=== PATIENT | female | born 1995 | race Caucasian/White ===

== ENCOUNTER 2019-02-05 09:33 | Outpatient (CLI) | payer OTHER, MEDICAID ==
[~2019-02-05] VITALS: Ht 167.6 cm; Wt 78.8 kg
[2019-02-05] MEDS ORDERED: MAPA500T2 PO (10:01)
[2019-02-05] MEDS ORDERED: ZANT150T40 PO (10:01)
[2019-02-05] MEDS ORDERED: PRENTAB9 PO (10:01)
[2019-02-05 10:03] VITALS: BP 113/62
[2019-02-05] MEDS ORDERED: FIORICET TAB PO ONE (10:30)
[2019-02-05] MEDS ORDERED: FIOR1CAP PO (12:15)
== END 2019-02-05 12:15 | disposition home or self-care (01) ==
LOC: M LDO 09:33
PROVIDERS: ATTEND Obstetrics & Gynecology
DX: O99.89 Other specified diseases and conditions complicating pregnancy, childbirth and the puerperium (principal); R51 Headache; Z3A.36 36 weeks gestation of pregnancy
CPT/HCPCS: 59025; G0378; G0463

== ENCOUNTER → 2019-02-11 | Outpatient (REF) | payer OTHER, MEDICAID ==
[~2019-02-11] MED LIST: FIOR1CAP PO; MAPA500T2 PO; PRENTAB9 PO; ZANT150T40 PO
== END ==
LOC: M SFHCWAGY 17:21
PROVIDERS: ATTEND Specialist
DX: Z36.85 Encounter for antenatal screening for Streptococcus B (principal)

== ENCOUNTER 2019-03-07 09:01 | Inpatient (IN) | payer OTHER, MEDICAID ==
[~2019-03-07] VITALS: Ht 167.6 cm; Wt 83.9 kg
[2019-03-07] VITALS (20 sets, daily range): BP systolic 115–148; BP diastolic 58–80
[2019-03-07] MEDS ORDERED: LACTATED RINGER'S 1000 ML IV STA (10:02)
[2019-03-07] MEDS ORDERED: PENICILLIN G POTASSIUM IV 5 MU in D5W MINI-BAG PLUS 100 ML IV STA (10:02)
[2019-03-07 10:27] LABS: HEMATOCRIT 36.2 % (36.0-47.0); HEMOGLOBIN 12.4 g/dl (12.0-15.5); MEAN CORPUSCULAR HGB CONC 34.3 g/dl (32.0-36.5); MEAN CORPUSCULAR VOLUME 93.5 fl (80.0-96.0); PLATELET COUNT, AUTOMATED 174 10^3/uL (150-450); RED BLOOD COUNT 3.87 10^6/uL (4.00-5.40)
[2019-03-07] MEDS: PENICILLIN G POTASSIUM IV 2.5 MU in IV 1 EA IV SCH ×2 (14:33→18:33)
[2019-03-07] MEDS ORDERED: FENTANYL 2MCG/ML ROPIVACAINE 0.2% IN 0.9% NACL 100ML IVBAG As Ordered ONE (14:42)
--- NOTE | 2019-03-07 14:45 | HPEPDOC ---
Obstetrical History & Physical General Date of Admission Mar 07, 2019 at 10:10 Primary Care Physician: JULIO AVILA CNM History of Present Illness Patient is a 24-year-old female who is a at 40.2 weeks gestation with an CHARO of 03/05/2019 based off of her LMP and consistent with her first trimester U S. She in initiated care in her first trimester with AWP. Her has been uncomplicated. She presents with complaints of contractions that started early in the morning. She reports active movement and reports some leaking of fluid. she denies vaginal bleeding. 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 HAPPED DURING INFANCY Medications Scheduled Acetaminophen (Mapap) 500 Mg Tablet, 1,000 MG PO Q6HP Butalb/Acetaminophen/Caffeine (Fioricet 50-300-40 mg Capsule) 1 Each Capsule, 1 CAP PO DAILY No.137/Iron/Folic Acd ( Vitamin Tablet) 1 Each Tablet, 1 TAB PO DAILY Ranitidine Hcl (Zantac) 150 Mg Tablet, 1 TAB PO BID Physical Examination Physical Examination GENERAL: Alert and oriented times three. BREAST: . ABDOMEN: Gravid and non-tender to touch. FETUS: Is vertex (VTX) by sterile vaginal examination (SVE), fetus is vertex (VTX) by Zackery. HEART RATE: Regular rate and rhythm. LUNGS: Clear to auscultation (CTA). EXTREMITIES: No edema. No clonus. Deep tendon reflexes (DTRs) + 2. Vital Signs/I&O Vital Signs Date Time Temp Pulse Resp B/P (MAP) Pulse Ox O2 Delivery O2 Flow Rate FiO2 03/07/19 14:05 97.5 95 18 123/60 (81) Laboratory Data 24H LABS Laboratory Tests 2 03/07/19 10:01: Nucleated Red Blood Cells % (auto) 0.0, Syphilis Serology NONREACTIVE 03/07/19 10:21: Serology Scanned Report Hepatitis B Testing CBC/BMP Laboratory Tests 03/07/19 10:01 Urine Culture: No Growth Pertinent Laboratoy Data Blood Type: A+ RBC Antibody Screen: Negative HIV: Negative Hepatitis B: Negative Hepatitis C: Negative Rapid Plasma Reagin: Nonreactive Rubella: Immune Chlamydia/Gonorrhea: Negative Group B Streptococcus: Positive Glucose Tolerance Test: 81 Vaginal Examination Dilation: 4 cm Effacement: 90% Station: -1 Cervical Consistency: Soft Cervical Position: Anterior Presentation: Cephalic presentation Position: Vertex (occiput) Assessment Heart Rate (FHR): 130 Variability: Moderate Accelerations: Positive Decelerations: None Tocometer Contractions: Yes Frequency: regular Strength: palpated as moderate Multi-drug resistant Organism: No history of MDRO Assessment/Plan Assessment IUP at 40.2 weeks gestation GBS positive active labor Category I FHR tracing Plan Admit to L&D. OOB ad ginette. Diet: regular. Group B Streptococcus positive. Start antibiotics per order. Labs and intravenous (IV) per unit protocol. Anesthesia consult per patient's request. Lactated Ringers (LR): Bolus 800 cc prior to epidural. Anticipate cervical change and . JULIO AVILA CNM Mar 07, 2019 14:45
[2019-03-07] MEDS ORDERED: EPIDURAL/PCA KEYS XX PRN (15:30)
[2019-03-07] MEDS ORDERED: EPIDURAL COMMENT XX SCH (15:30)
[2019-03-07] MEDS ORDERED: FENTANYL/ROPIVACAINE/NACL BAG 100 ML EPIDURAL SCH (15:30)
[2019-03-07] MEDS ORDERED: NALOXONE INJ 0.4 MG/1 ML VIAL (J2310) IV PRN (15:30)
[2019-03-07] MEDS ORDERED: ePHEDrine SULFATE 25 MG/5 ML(5MG/ML) SYRINGE IV PRN (15:30)
[2019-03-07] MEDS ORDERED: ONDANSETRON 4MG/2ML VIAL (J2405) IV PRN (15:30)
[2019-03-07] MEDS ORDERED: LACTATED RINGER'S 1000 ML IV PRN (15:30)
[2019-03-07] MEDS ORDERED: REFRIGERATOR IV KEYS XX PRN (15:30)
[2019-03-07] MEDS ORDERED: diphenhydrAMINE INJ 50MG/ML VIAL (J1200) IV PRN (15:30)
--- NOTE | 2019-03-07 17:18 | IPNPDOC ---
Obstetrical Progress Note Date of Service Mar 07, 2019 Subjective Patient reports feeling increased vaginal pressure at times. She is comfortable with her epidural. Objective Vital Signs Date Time Temp Pulse Resp B/P (MAP) Pulse Ox O2 Delivery O2 Flow Rate FiO2 03/07/19 14:05 97.5 95 18 123/60 (81) Assessment Heart Rate (FHR): 125 Variability: Minimal to moderate Accelerations: Positive Decelerations: Early Heart Rate Tracing: Category I Tocometer Contractions: Yes Frequency: regular, every 1-3 min. Sterile Vaginal Examination Dilation: 5 cm Effacement (%): 100% Station: 0 Postion/Presentation: Cephalic presentation Assessment and Plan Age: 24 : 1 Term: 0 Pre-term: 0 Abortions: 0 Livin EGA at Admission: 40.2 Status: Reassuring Group B Streptococcus: Positive Anticipate: Vaginal Delivery Additional Comments AROM to a moderate amount of clear fluid. JULIO AVILA CNM Mar 07, 2019 17:18
--- NOTE | 2019-03-07 20:09 | IPNPDOC ---
Obstetrical Progress Note Date of Service Mar 07, 2019 Subjective Patient reports she is uncomfortable. Anesthesia contacted for a top off. Objective Vital Signs Date Time Temp Pulse Resp B/P (MAP) Pulse Ox O2 Delivery O2 Flow Rate FiO2 03/07/19 18:49 80 18 129/72 (91) 03/07/19 16:19 97.6 Assessment Heart Rate (FHR): 125 Variability: Minimal to moderate Accelerations: Positive Decelerations: Early Heart Rate Tracing: Category I Tocometer Contractions: Yes Frequency: regular, other (1 to 2 minutes) Sterile Vaginal Examination Dilation: 8 cm Effacement (%): 100% Station: 0 Postion/Presentation: Cephalic presentation Assessment and Plan EGA at Admission: 40.2 Status: Reassuring Group B Streptococcus: Positive Anticipate: Vaginal Delivery Additional Comments Preeclamptic profile ordered due to multiple elevated BPs. Elevated BPs seem to correlate with pain. Last BP's: 141/78, 142/67, 146/68. JULIO AVILA CNM Mar 07, 2019 20:09
[2019-03-07 20:32] LABS: ALT/SGPT 14 U/L (12-78); BILIRUBIN,TOTAL 0.2 MG/DL (0.2-1.0); GLOMERULAR FILTRATION RATE > 60.0 (>60); LDH LACTATE DEHYDROGENASE 146 U/L (84-246)
[2019-03-07] MEDS ORDERED: OXYTOCIN 30 UNITS IN 0.9% NaCl 500ML IV BAG (J2590) As Ordered ONE ×2 (20:55→23:21)
[2019-03-07] MEDS ORDERED: OXYTOCIN DRIP 30 UNITS in IV 1 EA IV SCH ×4 (23:21)
[2019-03-07] MEDS ORDERED: IBUPROFEN 800 MG TAB As Ordered ONE (23:27)
[2019-03-07] MEDS ORDERED: ACETAMINOPHEN TAB 650MG DOSE (2X325MG) PO PRN (23:30)
[2019-03-07] MEDS: IBUPROFEN 800 MG TAB PO PRN (23:30)
[2019-03-07] MEDS ORDERED: RHOGAM 300 MCG (1500 IU) INJ (J2790) IM SCH (23:30)
[2019-03-07] MEDS ORDERED: DIBUCAINE 1% OINTMENT 30GM TOP PRN (23:30)
[2019-03-07] MEDS ORDERED: DOCUSATE SODIUM 100 MG CAP PO PRN (23:30)
[2019-03-07] MEDS ORDERED: MEASLES,MUMPS,RUBELLA VACCINE INJ (MMR-II) (90707) SC SCH (23:30)
[2019-03-07] MEDS ORDERED: ANUSOL HC CREAM 30GM TOP PRN (23:30)
[2019-03-07] MEDS ORDERED: IBUPROFEN 600 MG TAB PO PRN (23:30)
--- NOTE | 2019-03-07 23:34 | DNPDOC ---
[facility] Delivery Note Delivery Note DATE OF DELIVERY: 03/07/2019 at 2233 PREDELIVERY DIAGNOSIS: 40-2/7 weeks' gestation and labor. POST DELIVERY DIAGNOSIS: Delivered. PROCEDURE: Spontaneous vaginal delivery PROVIDER: Julio Neves CNM, WHNP ANESTHESIA: epidural. ESTIMATED BLOOD LOSS: 450 mL. FINDINGS: 8 pounds 7 ounces; 3820 grams; female , Score 9/9, GHTN diagnosed during labor. DELIVERY SUMMARY: Patient is a 24-year-old female who is now a who pr esented to L&D in active labor. She received an epidural for pain management. The patient progressed to fully dilated at 2123 and pushed to a living female in the OA position with restitution to ROT at 2233. The anterior shoulder delivered with ease and the corpus immediately followed. The baby was placed on the maternal abdomen, [id number] active and crying. The cord was clamped times 2 after pulsation ceased and cut by the FOB. A 3-vessel cord was noted. The placenta delivered spontaneously and intact at 2242. Uterine hemostasis was achieved via rapid infusion of IV Pitocin at 999 cc/hr for 30 units in 500 cc of NS and fundal massage. The vagina, cervix, and perineum was inspected and found to have a small 2nd degree perineal laceration that was repaired with a 3.[address]-1. She also had a left labia abrasion that was not repaired due to good hemostasis. Patient was straight cathed and drained 300 cc of urine from bladder. Mom plans to breast feed and attempted in the room. Both mom and baby are in stable condition. All counts of instruments and sponges are correct. They are naming their baby Denisse. JULIO NEVES CNM Mar 07, 2019 23:34
[2019-03-07] MEDS: ACETAMINOPHEN 500 MG TAB PO PRN (23:42)
[2019-03-08 02:10] VITALS: BP 119/66
[2019-03-08 06:13] VITALS: BP 127/64
--- NOTE | 2019-03-08 07:17 | IPNPDOC ---
Progress Note Date of Service: Mar 08, 2019 Day#: 1 Progress Note SUBJECT: She has been ambulating, voiding spontaneously without issue and tolerating regular diet. Breast feeding without issue. Reports difficulty taking a deep breath and slight chest pain only when she stands up but reports she does not have this when she is sitting or laying down. OBJECTIVE: VITAL SIGNS: Within normal limits, afebrile. Alert and oriented times three. Breath sounds clear to auscultation. Heart rate: Regular rate and rhythm, no murmurs, rubs or gallops. Abdomen: Fundus firm at U/-1. Soft, tender to touch but only palpation. Minimal lochia. ASSESSMENT: Day 1 PLAN: 1. Continue supportive nursing care and breast feeding support. 2. Anticipate discharge tomorrow. VS, I&O, 24H, [facility] Vital Signs/I&O Vital Signs Date Time Temp Pulse Resp B/P (MAP) Pulse Ox O2 Delivery O2 Flow Rate FiO2 03/08/19 06:13 97.4 106 18 127/64 (85) 03/08/19 02:10 96 I&O- Last 24 Hours up to 6 AM 03/08/19 06:00 Intake Total 253 ml Output Total 1800 ml Balance -1547 ml Laboratory Data 24H LABS Laboratory Tests 2 03/07/19 10:01: Nucleated Red Blood Cells % (auto) 0.0, Glomerular Filtration Rate > 60.0, Uric Acid 6.0, Total Bilirubin 0.2, Aspartate Amino Transf (AST/SGOT) 12, Alanine Aminotransferase (ALT/SGPT) 14, Lactate Dehydrogenase 146, Syphilis Serology NONREACTIVE 03/07/19 10:21: Serology Scanned Report Hepatitis B Testing CBC/BMP Laboratory Tests 03/07/19 10:01 JULIO AVILA CNM Mar 08, 2019 07:16
[2019-03-08] MEDS: PRENATAL VITAMINS CHEWABLE TABLET PO SCH (09:03)
[2019-03-08] MEDS ORDERED: SLF 3 ML SYR IV PRN (10:30)
[2019-03-08] MEDS: IBUPROFEN 800 MG TAB PO PRN (11:13)
[2019-03-08] MEDS: SLF 3 ML SYR IV SCH ×2 (13:34→22:00)
[2019-03-08 17:59] VITALS: BP 110/57
[2019-03-08] MEDS: ACETAMINOPHEN 500 MG TAB PO PRN (18:08)
[2019-03-09] MEDS: SLF 3 ML SYR IV SCH (06:00)
[2019-03-09 06:18] VITALS: BP 116/68
[2019-03-09] MEDS ORDERED: ACET-683 PO (08:13)
[2019-03-09] MEDS ORDERED: IBUP80TA PO (08:13)
[2019-03-09] MEDS: PRENATAL VITAMINS CHEWABLE TABLET PO SCH (08:42)
[2019-03-09] MEDS ORDERED: ANUSOL HC CREAM 30GM TOP SCH (09:00)
[2019-03-09] MEDS: IBUPROFEN 800 MG TAB PO PRN (13:29)
== END 2019-03-09 14:40 | disposition home or self-care (01) | DRG 560 ==
LOC: M LDO 09:01 → M LDI 10:10 → M OBS 03-08 01:54
PROVIDERS: ADMIT Advanced Practice Midwife; ATTEND Advanced Practice Midwife
PROC: 10E0XZZ Delivery of Products of Conception, External Approach (ICD-10-PCS; principal; 2019-03-07)
PROC: 10907ZC Drainage of Amniotic Fluid, Therapeutic from Products of Conception, Via Natural or Artificial Opening (ICD-10-PCS; 2019-03-07)
PROC: 0KQM0ZZ Repair Perineum Muscle, Open Approach (ICD-10-PCS; 2019-03-07)
DX: O48.0 Post-term pregnancy (principal); Z3A.40 40 weeks gestation of pregnancy; Z37.0 Single live birth; O99.824 Streptococcus B carrier state complicating childbirth; O13.4 Gestational [pregnancy-induced] hypertension without significant proteinuria, complicating childbirth; O70.1 Second degree perineal laceration during delivery

== ENCOUNTER → 2019-04-22 | Outpatient (CLI) | payer OTHER, MEDICAID ==
[~2019-04-22] MED LIST changes: +ACET-683 PO; +IBUP80TA PO
[2019-04-22 12:04] LABS: BASO % 0.2 % (0.0-1.0); EOS # 0.1 10^3/uL (0.0-0.5); EOS % 0.8 % (0.0-3.0); HEMATOCRIT 44.9 % (36.0-47.0); HEMOGLOBIN 14.9 g/dl (12.0-15.5); LYMPH # 1.5 10^3/uL (1.5-5.0); MEAN CORPUSCULAR HEMOGLOBIN 30.9 pg (27.0-33.0); MEAN CORPUSCULAR HGB CONC 33.2 g/dl (32.0-36.5); MEAN CORPUSCULAR VOLUME 93.2 fl (80.0-96.0); MONO # 0.4 10^3/uL (0.0-0.8); MONO % 4.4 % (0.0-5.0); NEUTROPHILS # 7.1 10^3/uL (1.5-8.5); NEUTROPHILS % 78.3 % (36.0-66.0); PLATELET COUNT, AUTOMATED 249 10^3/uL (150-450); RED BLOOD COUNT 4.82 10^6/uL (4.00-5.40)
[2019-04-22 12:14] LABS: ALBUMIN 4.5 GM/DL (3.2-5.2); ALT/SGPT 21 U/L (12-78); BILIRUBIN,TOTAL 1.1 MG/DL (0.2-1.0); BLOOD UREA NITROGEN 15 MG/DL (7-18); C REACTIVE PROTEIN QUANTITATIV < 0.30 MG/DL (0.00-0.30); CALCIUM LEVEL 9.8 MG/DL (8.5-10.1); CARBON DIOXIDE LEVEL 28 MEQ/L (21-32); CHLORIDE LEVEL 104 MEQ/L (98-107); CREATININE FOR GFR 0.85 MG/DL (0.55-1.30); FOLATE > 24.0 NG/ML; FREE T4 1.28 NG/DL (0.76-1.46); GLOMERULAR FILTRATION RATE > 60.0 (>60); GLUCOSE, FASTING 104 MG/DL (70-100); POTASSIUM SERUM 4.1 MEQ/L (3.5-5.1); SODIUM LEVEL 138 MEQ/L (136-145); THYROID STIMULATING HORMONE 0.402 uIU/ML (0.358-3.740); TOTAL PROTEIN 7.7 GM/DL (6.4-8.2); VITAMIN B12 LEVEL 871 PG/ML
[2019-04-22 12:36] LABS: ERYTHROCYTE SEDIMENTATION RATE 5 mm/hr (0-20)
== END ==
LOC: M PLALAB 09:39
PROVIDERS: ATTEND Physician Assistant
DX: F45.8 Other somatoform disorders (principal); F41.1 Generalized anxiety disorder

== ENCOUNTER → 2019-07-06 | Outpatient (REF) | payer OTHER, MEDICAID | LOC: M SFHCWAGY 10:45 | PROVIDERS: ATTEND Advanced Practice Midwife | DX: Z01.419 Encounter for gynecological examination (general) (routine) without abnormal findings (principal); Z12.4 Encounter for screening for malignant neoplasm of cervix; R87.612 Low grade squamous intraepithelial lesion on cytologic smear of cervix (LGSIL) ==

== ENCOUNTER 2020-04-04 12:58 | Inpatient (IN) | payer MEDICAID, OTHER ==
[~2020-04-04] VITALS: Ht 167.6 cm; Wt 61.0 kg
--- OUTSIDE RECORDS SUMMARY | 2020-04-04 13:05 | CCD | Continuity of Care Document ---
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 AUTM Delta Spain MD AUTM [phone] Leon Voss M.D. AUTM [phone] Problems Active Problems Provider Date Generalized anxiety disorder PHIL Argueta Onset: 11/2018 Hand joint pain PHIL Argueta Onset: 02/25/2018 Acne PHIL Argueta Onset: 02/25/2018 Joint pain PHIL Argueta Onset: 02/25/2018 Social History Type Date Description Comments Sex Unknown ETOH Use Consumes 1 glass of wine per wee k Tobacco Use Start: Unknown Patient has never smoked Recreational Drug Use Denies Drug Use Smoking Status Reviewed: 08/12/19 Patient has never smoked Exercise Type/Frequency Walks sporadically Exercise Type/Frequency Yoga Sun Exposure Uses sunscreen Seat Belt/Car Seat Always uses seat belt Allergies, Adverse Reactions, Alerts Active Allergies Reaction Severity Comments Date Sulfa Flushing, Itching 02/15/2018 Medications Active Medications SIG Qnty Indications Ordering Provide r Date Clonazepam 0.5mg Tablets one-two tablet by mouth daily as needed for anxiety istop 197050930 30tabs F45.8 Arianna Tyler D.O. 04/22/2019 Sertraline HCL 50mg Tablets 1 by mouth every day Unknown Nexplanon 68mg Implant Unknown Immunizations CPT Code Status Date Vaccine Lot # [id number] Given 12/09/2019 Influenza Virus Vaccine, Quadrivalent, Split, Preservative Free [id number] Vital Signs Date Vital Result Comment 03/12/2020 2:50pm BP Systolic 112 mmHg BP Diastolic 68 mmHg Height 65.2 inches 5'5.20" Weight 143.38 lb BMI (Body Mass Index) 23.7 kg/m2 Heart Rate 75 /min Respiratory Rate 18 /min Body Temperature 98.6 F O2 % BldC Oximetry 98 % [place] Body Weight 125 lb 12/09/2019 1:21pm BP Systolic 114 mmHg BP Diastolic 64 mmHg Height 65.2 inches 5'5.20" Weight 142.50 lb BMI (Body Mass Index) 23.6 kg/m2 Heart Rate 87 /min Respiratory Rate 18 /min Body Temperature 98.4 F O2 % BldC Oximetry 98 % [place] Body Weight 125 lb Results Description No Information Available Procedures Description No Information Available Medical Devices Description No Information Available Encounters Type Date Location Provider Dx Diagnosis Office Visit 03/12/2020 3:00p [facility] PHIL Argueta F41.1 Generalized anxiety disorder H69.93 Unspecified Eustachian tube disorder, bilateral Office Visit 12/09/2019 1:20p [facility] PHIL Argueta H69.93 Unspecified Eustachian tube disorder, bilateral Z23 Encounter for immunization Assessments Date Code Description Provider 03/12/2020 F41.1 Generalized anxiety disorder PHIL Weathers 03/12/2020 H69.93 Unspecified Eustachian tube diso rder, bilateral PHIL Argueta 12/09/2019 H69.93 Unspecified Eustachian tube diso rder, bilateral PHIL Argueta 12/09/2019 Z23 Encounter for immunization PHIL Graham Plan of Treatment Future Appointment(s):* 07/10/2020 2:00 pm - PHIL Argueta at [facility] 03/12/2020 - PHIL Argueta* F41.1 Generalized anxiety disorder* Comments: * Stable with your current medication regimen, and we will refill that today. Call for any concerns. * Follow up:* 4 months with me. * H69.93 Unspecified Eustachian tube disorder, bilateral* Comments:* Stable. Continue with the recommendations of ENT. Functional Status Description No Information Available Mental Status Description No Information Available Referrals Refer to Reason for Referral Status Appt Date Leon Voss M.D. 24 year old female with pers istent eustachian tube dysfunction in spite of conservative measures. Please eval and treat. Closed 01/03/2020 [facility] [address] [place] [address], [address] [place] [address] [phone]
--- OUTSIDE RECORDS SUMMARY | 2020-04-04 13:06 | CCD ---
Author Author [facility] Organization [facility] Address Unknown Phone Unavailable Care Team Providers Care Reconciliation Coordinator Name Role Phone COURTNEY MILLER MD Unavailable Unavailable COURTNEY MILLER MD Unavailable Unavailable COURTNEY MILLER MD Unavailable Unavailable COURTNEY MILLER MD Unavailable Unavailable COURTNEY MILLER MD Unavailable Unavailable COURTNEY MILLER MD Unavailable Unavailable COURTNEY MILLER MD Unavailable Unavailable COURTNEY MILLER MD Unavailable Unavailable COURTNEY MILLER MD Unavailable Unavailable COURTNEY MILLER MD Unavailable Unavailable COURTNEY MILLER MD Unavailable Unavailable COURTNEY MILLER MD Unavailable Unavailable COURTNEY MILLER MD Unavailable Unavailable COURTNEY MILLER MD Unavailable Unavailable COURTNEY MILLER MD Unavailable Unavailable COURTNEY MILLER MD Unavailable Unavailable CHROSTOWSKI, COURTNEY MD Unavailable Unavailable CHROSTOWSKI, COURTNEY MD Unavailable Unavailable CHROSTOWSKI, COURTNEY MD Unavailable Unavailable CHROSTOWSKI, COURTNEY MD Unavailable Unavailable CHROSTOWSKI, COURTNEY MD Unavailable Unavailable CHROSTOWSKI, COURTNEY MD Unavailable Unavailable CHROSTOWSKI, COURTNEY MD Unavailable Unavailable CHROSTOWSKI, COURTNEY MD Unavailable Unavailable CHROSTOWSKI, COURTNEY MD Unavailable Unavailable CHROSTOWSKI, COURTNEY MD Unavailable Unavailable CHROSTOWSKI, COURTNEY MD Unavailable Unavailable CHROSTOWSKI, COURTNEY MD Unavailable Unavailable CHROSTOWSKI, COURTNEY MD Unavailable Unavailable CHROSTOWSKI, COURTNEY MD Unavailable Unavailable CHROSTOWSKI, COURTNEY MD Unavailable Unavailable CHROSTOWSKI, COURTNEY MD Unavailable Unavailable CHROSTOWSKI, COURTNEY MD Unavailable Unavailable CHROSTOWSKI, COURTNEY MD Unavailable Unavailable CHROSTOWSKI, COURTNEY MD Unavailable Unavailable CHROSTOWSKI, COURTNEY MD Unavailable Unavailable CHROSTOWSKI, COURTNEY MD Unavailable Unavailable CHROSTOWSKI, COURTNEY MD Unavailable Unavailable CHROSTOWSKI, COURTNEY MD Unavailable Unavailable CHROSTOWSKI, COURTNEY MD Unavailable Unavailable Ai, Dong PA Unavailable Unavailable Ai, Dong PA Unavailable Unavailable Ai, Dong PA Unavailable Unavailable Ai, Dong PA Unavailable Unavailable Ai, Dong PA Unavailable Unavailable Ai, Dong PA Unavailable Unavailable Ai, Dong PA Unavailable Unavailable Ai, Dong PA Unavailable Unavailable Ai, Dong PA Unavailable Unavailable Ai, Dnog PA Unavailable Unavailable Ai, Dong PA Unavailable Unavailable Ai, Dong PA Unavailable Unavailable Ai, Dong PA Unavailable Unavailable Ai, Dong PA Unavailable Unavailable Ai, Dong PA Unavailable Unavailable Ai, Dong PA Unavailable Unavailable Ai, Dong PA Unavailable Unavailable Ai, Dong PA Unavailable Unavailable Ai, Dong PA Unavailable Unavailable Ai, Dong PA Unavailable Unavailable Ai, Dong PA Unavailable Unavailable Ai, Dong PA Unavailable Unavailable Ai, Dong PA Unavailable Unavailable Ai, Dong PA Unavailable Unavailable Ai, Dong PA Unavailable Unavailable Ai, Dong PA Unavailable Unavailable Ai, Dong PA Unavailable Unavailable Ai, Dong PA Unavailable Unavailable Ai, Dong PA Unavailable Unavailable Ai, Dong PA Unavailable Unavailable Ai, Dong PA Unavailable Unavailable Ai, Dong PA Unavailable Unavailable Ai, Dong PA Unavailable Unavailable Ai, Dong PA Unavailable Unavailable Ai, Dong PA Unavailable Unavailable Ai, Dong PA Unavailable Unavailable Ai, Dong PA Unavailable Unavailable Ai, Dong PA Unavailable Unavailable Ai, Dong PA Unavailable Unavailable Ai, Dong PA Unavailable Unavailable Ai, Dong PA Unavailable Unavailable Ai, Dong PA Unavailable Unavailable Ai, Dong PA Unavailable Unavailable Ai, Dong PA Unavailable Unavailable Ai, Dong PA Unavailable Unavailable Ai, Dong PA Unavailable Unavailable Ai, Dong PA Unavailable Unavailable Ai, Dong PA Unavailable Unavailable Ai, Dong PA Unavailable Unavailable Rossi, Sameera [facility] COURT OF APPEALS LAW CLERK Unavailable Unavailable Rossi, Sameera FEDERAL COURT OF APPEALS LAW CLERK Unavailable Unavailable Rossi, Sameera FED[facility] COURT OF APPEALS LAW CLERK Unavailable Unavailable Rossi, Sameera FEDERAL COURT OF [place] LAW CLERK Unavailable Unavailable Rossi, Sameera FEDERAL COURT OF APPEALS LAW CLERK Unavailable Unavailable Rossi, Sameera FEDERAL COURT OF APPEALS LAW CLERK Unavailable Unavailable Rossi, Sameera FEDERAL COURT OF APPEALS LAW CLERK Unavailable Unavailable Rossi, Sameera FEDERAL COURT OF APPEALS LAW CLERK Unavailable Unavailable Rossi, Sameera FEDERAL COURT OF [place] LAW CLERK Unavailable Unavailable Rossi, Sameera FEDERAL COURT OF APPEALS LAW CLERK Unavailable Unavailable Rossi, Sameera FEDERAL COURT OF APPEALS LAW CLERK Unavailable Unavailable Ai, Dong PA Unavailable Unavailable Ai, Dong PA Unavailable Unavailable Ai, Dong PA Unavailable Unavailable Ai, Dong PA Unavailable Unavailable Ai, Dong PA Unavailable Unavailable Ai, Dong PA Unavailable Unavailable Ai, Dong PA Unavailable Unavailable Ai, Dong PA Unavailable Unavailable Ai, Dong PA Unavailable Unavailable Ai, Dong PA Unavailable Unavailable Ai, Dong PA Unavailable Unavailable Ai, Dong PA Unavailable Unavailable Ai, Dong PA Unavailable Unavailable Ai, Dong PA Unavailable Unavailable Ai, Dong PA Unavailable Unavailable Ai, Dong PA Unavailable Unavailable Ai, Dong PA Unavailable Unavailable Ai, Dong PA Unavailable Unavailable Ai, Dong PA Unavailable Unavailable Ai, Dong PA Unavailable Unavailable Ai, Dong PA Unavailable Unavailable Ai, Dong PA Unavailable Unavailable Ai, Dong PA Unavailable Unavailable Ai, Dong PA Unavailable Unavailable Ai, Dong PA Unavailable Unavailable Ai, Dong PA Unavailable Unavailable Ai, Dong PA Unavailable Unavailable Ai, Dong PA Unavailable Unavailable Ai, Dong PA Unavailable Unavailable Ai, Dong PA Unavailable Unavailable Ai, Dong PA Unavailable Unavailable Ai, Dong PA Unavailable Unavailable Ai, Dong PA Unavailable Unavailable Ai, Dong PA Unavailable Unavailable Ai, Dong PA Unavailable Unavailable Ai, Dong PA Unavailable Unavailable Ai, Dong PA Unavailable Unavailable Ai, Dong PA Unavailable Unavailable Ai, Dong PA Unavailable Unavailable Ai, Dong PA Unavailable Unavailable Ai, Dong PA Unavailable Unavailable Ai, Dong PA Unavailable Unavailable Ai, Dong PA Unavailable Unavailable Ai, Dong PA Unavailable Unavailable Ai, Dong PA Unavailable Unavailable Ai, Dong PA Unavailable Unavailable Ai, Dong PA Unavailable Unavailable Ai, Dong PA Unavailable Unavailable Ai, Dong PA Unavailable Unavailable Stewart, C Samra PA Unavailable Unavailable Stewart, C Samra PA Unavailable Unavailable Stewart, C Samra PA Unavailable Unavailable Stewart, C Samra PA Unavailable Unavailable Stewart, C Samra PA Unavailable Unavailable Stewart, C Samar PA Unavailable Unavailable Stewart, C Samra PA Unavailable Unavailable Stewart, C Samra PA Unavailable Unavailable Stewart, C Samra PA Unavailable Unavailable Stewart, C Samra PA Unavailable Unavailable Stewart, C Samra PA Unavailable Unavailable Stewart, C Samra PA Unavailable Unavailable Stewart, C Samra PA Unavailable Unavailable Stewart, C Samra PA Unavailable Unavailable Stewart, C Samra PA Unavailable Unavailable Stewart, C Samra PA Unavailable Unavailable Stewart, C Samra PA Unavailable Unavailable Stewart, C Samra PA Unavailable Unavailable Stewart, C Samra PA Unavailable Unavailable Stewart, C Samra PA Unavailable Unavailable Stewart, C Samra PA Unavailable Unavailable Stewart, C Samra PA Unavailable Unavailable Stewart, C Samra PA Unavailable Unavailable Stewart, C Samra PA Unavailable Unavailable Stewart, C Samra PA Unavailable Unavailable Stewart, C Samra PA Unavailable Unavailable Stewart, C Samra PA Unavailable Unavailable Stewart, C Samra PA Unavailable Unavailable Stewart, C Samra PA Unavailable Unavailable Stewart, C Samra PA Unavailable Unavailable Stewart, C Samra PA Unavailable Unavailable Stewart, C Samra PA Unavailable Unavailable Stewart, C Samra PA Unavailable Unavailable Stewart, C Samra PA Unavailable Unavailable Stewart, C Samra PA Unavailable Unavailable Stewart, C Samra PA Unavailable Unavailable Stewart, C Samra PA Unavailable Unavailable Stewart, C Samra PA Unavailable Unavailable Stewart, C Samra PA Unavailable Unavailable Stewart, C Samra PA Unavailable Unavailable Stewart, C Samra PA Unavailable Unavailable Stewart, C Smara PA Unavailable Unavailable Stewart, C Samra PA Unavailable Unavailable Stewart, C Samra PA Unavailable Unavailable Stewart, C Samra PA Unavailable Unavailable Stewart, C Samra PA Unavailable Unavailable Stewart, C Samra PA Unavailable Unavailable Re-disclosure Warning The records that you are about to access may contain information from federally-assisted alcohol or drug abuse programs. If such information is present, then the following federally mandated warning applies: This information has been disclosed to you from records protected by federal confidentiality rules (42 CFR part 2). The federal rules prohibit you from making any further disclosure of this information unless further disclosure is expressly permitted by the written consent of the person to whom it pertains or as otherwise permitted by 42 CFR part 2. A general authorization for the release of medical or other information is NOT sufficient for this purpose. The Federal rules restrict any use of the information to criminally investigate or prosecute any alcohol or drug abuse patient.The records that you are about to access may contain highly sensitive health information, the redisclosure of which is protected by Article 27-F of the [facility] Public Health law. If you continue you may have access to information: Regarding HIV / AIDS; Provided by facilities licensed or operated by the [facility] Office of Mental Health; or Provided by the [facility] Office for People With Developmental Disabilities. If such information is present, then the following [facility] mandated warning applies: This information has been disclosed to you from confidential records which are protected by state law. State law prohibits you from making any further disclosure of this information without the specific written consent of the person to whom it pertains, or as otherwise permitted by law. Any unauthorized further disclosure in violation of state law may result in a fine or assisted sentence or both. A general authorization for the release of medical or other information is NOT sufficient authorization for further disc losure. Allergies and Adverse Reactions Type Description Substance Reaction Status Data Source(s ) sulfa sulfa sulfa Hives Active eCW1 ([facility]) sulfa sulfa sulfa Hives Active eCW1 ([facility]) sulfa sulfa sulfa Hives Active eCW1 ([facility]) sulfa sulfa sulfa Hives Active eCW1 ([facility]) sulfa sulfa sulfa Hives Active eCW1 ([facility]) Family History Family Member Name Family Member Gender Family Member Status Date o f Status Description Data Source(s) Unknown Male Problem MEDENT ([facility]) Unknown Unknown Problem MEDENT ([facility]) Encounters Encounter Providers Location Date Indications Data Source(s ) Outpatient Attender: Dong VILLARREAL [facility] 03/12/2020 02:00:00 PM EST MEDENT ([facility]) Outpatient Attender: Dong VILLARREAL [facility] 12/09/2019 01:20:00 PM EDT MEDENT ([facility]) Outpatient Attender: COURTNEY MILLER MD Main Office 10/07/2019 09:30:00 AM EDT [facility] ([facility] Outpatient Attender: Dong VILLARREAL [facility] 08/12/2019 10:20:00 AM EDT MEDENT ([facility]) Outpatient Attender: Dong VILLARREAL [facility] 08/09/2019 09:20:00 AM EDT MEDENT ([facility]) [facility] [address] [place] [address] 07/13/2019 12:00:00 AM EDT eCW1 ([facility]) [facility] [address] [place] [address] 07/06/2019 12:00:00 AM EDT eCW1 ([facility]) [facility] [address] [place] [address] 06/15/2019 12:00:00 AM EDT eCW1 ([facility]) Outpatient Attender: Dong VILLARREAL [facility] 05/24/2019 08:40:00 AM EDT MEDENT ([facility]) Outpatient Referrer: Dong VILLARREAL 05/10/2019 05:58:00 AM EDT [facility] Outpatient Referrer: Dong VILLARREAL 05/02/2019 12:30:00 PM EDT [facility] Outpatient Referrer: Dong VILLARREAL 04/27/2019 12:49:00 PM EDT [facility] [address] [place] [address] 04/27/2019 12:00:00 AM EDT eCW1 ([facility]) Outpatient Referrer: Dong VILLARREAL 04/26/2019 02:06:00 PM EDT [facility] Outpatient Referrer: Dong VILLARREAL 04/26/2019 01:57:00 PM EDT [facility] Outpatient Referrer: Dong VILLARREAL 04/25/2019 11:58:00 AM EDT [facility] Outpatient Referrer: Dong VILLARREAL 04/25/2019 11:39:00 AM EDT [facility] Outpatient Referrer: Samra VILLARREAL 04/25/2019 11:37:00 AM EDT [facility] Outpatient Attender: Dong VILLARREAL [facility] 04/25/2019 11:20:00 AM EDT MEDENT ([facility]) Outpatient Attender: Dong VILLARREAL [facility] 04/22/2019 07:40:00 AM EST MEDENT ([facility]) Outpatient Attender: Dong VILLARREAL [facility] 04/20/2019 08:00:00 AM EST MEDENT ([facility]) Outpatient Attender: Sameera waller 04/12/2019 07:00:00 AM EST MEDENT ([facility] [address] [place] [address] 03/15/2019 12:00:00 AM EST eCW1 ([facility]) [facility] [address] [place] [address] 03/14/2019 12:00:00 AM EST eCW1 ([facility]) [facility] [address] [place] [address] 03/09/2019 12:00:00 AM EST eCW1 ([facility]) [facility] [address] [place] [address] 02/28/2019 12:00:00 AM EST eCW1 ([facility]) [facility] [address] [place] [address] 02/21/2019 12:00:00 AM EST eCW1 ([facility]) [facility] [address] [place] [address] 02/18/2019 12:00:00 AM EST eCW1 ([facility]) [facility] [address] [place] [address] 2019 12:00:00 AM EST eCW1 ([facility]) Immunizations Vaccine Date Status Description Data Source(s) New in 2011. IIV4 12/09/2019 01:40:00 PM EDT completed MEDENT ([facility]) Medications Medication Brand Name Start Date Product Form Dose Route Admi nistrative Instructions Pharmacy Instructions Status Indications Reaction Description Data Source(s) doxycycline hyclate 100 MG Oral Tablet Doxycycline Hyclate 0 10/07/2019 12:00:00 AM EDT active [facility] Fluticasone Propionate Fluticasone Propionate 08/09/2019 12:00:00 AM E DT completed MEDENT ([facility]) Clonazepam 0.5 MG Oral Tablet Clonazepam 04/22/2019 12:00:00 AM EST ORAL active MEDENT ([facility]) desloratadine 5 MG Oral Tablet Desloratadine 04/20/2019 12:00:[address] ORAL active MEDENT ([facility]) 20 mg 04/12/2019 12:00:00 AM EST tablet 8 TAKE ONE TABLET BY MOUTH TWICE A DAY FOR 4 DAYS TAKE ONE TABLET BY MOUTH TWICE A DAY FOR 4 DAYS SOLD: 2019 [facility] Prednisone 20 MG Oral Tablet Prednisone 04/12/2019 12:00:00 AM EST active MEDENT ([facility]) 50 mcg/actuation 04/12/2019 12:00:00 AM EST spray,suspension 16 SPRAY 2 SPRAYS IN EACH NOSTRIL ONCE DAILY FOR 1 WEEK THEN 1 TO 2 SPRAYS IN EACH NOSTRIL DAILY SPRAY 2 SPRAYS IN EACH NOSTRIL ONCE NILES Y FOR 1 WEEK THEN 1 TO 2 SPRAYS IN EACH NOSTRIL DAILY SOLD: 04/12/2019 [facility] [place] [facility] [place] 04/12/2019 12:00:00 AM EST active MEDENT ([facility]) Sertraline 50 MG Oral Tablet [Zoloft] Zoloft 50 MG Zoloft 50 MG 03/15/2019 12:00:00 AM EST active 1 tablet [facility] Sertraline 50 MG Oral Tablet [Zoloft] Zoloft 50 MG Zoloft 50 MG 03/15/2019 12:00:00 AM EST active 1 tablet [facility]) Sertraline 50 MG Oral Tablet [Zoloft] Zoloft 50 MG Zoloft 50 MG 03/15/2019 12:00:00 AM EST active 1 tablet [facility]) Insurance Providers Payer name Policy type / Coverage type Policy ID Covered republican ID Covered republican's relationship to harkins Policy Harkins Plan Information EMEDNY [id number] SP [id number] [facility] [id number] FA2 80 [id number] [facility] [id number] SP [id number] MEDICAID [id number] SP [id number] MEDICARE C [id number] S [id number] [facility] O [id number] D [id number] [facility] [id number] [facility] H [id number] Self [id number] [facility] EXCHANGE U [id number] Self [id number] [facility] O [id number] S [id number] [facility] Health Maintenance Organization (HMO) [id number] [facility] H [id number] Self [id number] [facility] Health Maintenance Organization (HMO) [id number] [facility] Commercial [id number] Family Dependent [id number] [facility] [employer] Commercial [id number] Family Dependent [id number] [facility] Commercial [id number] Family Dependent [id number] [facility] Health Maintenance Organization (HMO) [id number] Fa carroll Dependent [id number] [employer] Commercial [id number] Family Dependen t [id number] [facility] Health Maintenance Organization (HMO) [id number] Fa carroll Dependent [id number] [facility] Health Care Health Maintenance Organization (HMO) [id number] Family Dependent [id number] [facility] Commercial [id number] Self [id number] [facility] Commercial [id number] Self [id number] [facility] Health Maintenance Organization (HMO) [id number] [facility] [employer] [id number] FA2 [id number] [employer] [id number] FA2 [id number] [employer] [id number] FA2 [id number] [facility] [id number] FA2 [id number] [employer] [id number] FA [id number] [facility] Health Maintenance Organization (HMO) [id number] [facility] Commercial [id number] Family Dependent [id number] [facility] Health Care Commercial Family Dependent [facility] [id number] SP [id number] [facility] P [id number] D [id number] Problems, Conditions, and Diagnoses Code Display Name Description Problem Type Effective Dates Data Source(s) 39310857 Chronic rhinitis Chronic rhinitis Problem 10/07/2019 12 :00:00 AM EDT [facility] ([facility] F41.1 [id number] Generalized anxiety disorder Problem 020 12:00:00 AM EDT [facility] F32.9 [id number] Depression Problem 04/27/2019 12:00:00 AM ED T [facility]) Surgeries/Procedures Procedure Description Date Indications Data Source(s) PERCUTANEOUS TESTS W/ALLERGENIC EXTRACTS 10/07/2019 12 :00:00 AM EDT [facility] ([facility]) INTRACUTANEOUS TESTS W/ALLERGENIC EXTRACTS 10/07/2019 12:00:00 AM EDT [facility] ([facility]) URINE TEST 06/15/2019 12:00:00 AM EDT [facility]) Etonogestrel (contraceptive) implant system, including impla nt and supplies 06/15/2019 12:00:00 AM EDT eCW1 ([facility]) INSERT DRUG IMPLANT DEVICE 06/15/2019 12:00:00 AM EDT [facility]CW1 [facility]) CARE VISIT 04/27/2019 12:00:00 AM EDT [facility]1 [facility]) OB Visit 02/28/2019 12:00:00 AM EST e CW1 [facility]) Results ID Date Data Source [id number] 05/02/2019 12:00:00 AM EDT [facility] Patient Name: JESICA SINGLETON [id number] Date of : 1995 1 Date of Exam: 05/02/2019OLIVERIO Scott [id number]#: Fax: [phone] EXAM: MRI BRAIN WITHOUT&WITH CONTRASTPROCEDURE INFORMATION:Exam: MR Head Without and With ContrastExam date and time: 05/02/2019 12:30 PM Age: 24 years oldClinical indication: Numbness / parasthesia; BilateralTECHNIQUE: Imaging protocol: MR of the head without and with intravenouscontrast. 3D rendering: MIP and/or 3D reconstructed images were created bythe technologist. Contrast material: PROHANCE; Contrast volume: 13 ml;Contrast route: LAC;COMPARISON: No relevant prior studies available.FINDINGS:Brain: Examination of the brain demonstrates normal morphology and signalintensity.No acute infarction, masses, midline shift or acute hemorrhage isseen. No acute intracranial abnormality is identified.There is no abnormaldiffusion weighted signal intensity to suggest an acute ischemic event.Thecortical blanchard / white matter interfaces are preserved throughout thebrain.Intracranial flow voids are well maintained.Examination of theposterior fossa demonstrates no significant abnormality. Ventricles: Theventricular system is not dilated and is appropriate for the patient's age.Bones/joints: Unremarkable.Soft tissues: Unremarkable.Sinuses: Normal as visualized. No acute sinusitis.Mastoid air cells: Normal as visualized. No mastoid effusion.Orbits: Unremarkable.IMPRESSION:1. No acute infarction, masses or hemorrhage is seen. No acute intracranialabnormality is identified. 2. No abnormal contrast enhancement is seen.Thank you for allowing us to participate in the care of your patient.Dictated and Authenticated by: Narayan Barksdale MD 05/02/2019 2:03 PMEastern Time ([place] & [place])VradV/kusumcTsharon you for referring JESICA SINGLETON to our office. Electronically Signed - SALOMEAD 05/02/19 15:28 Name Value Range Interpretation Code Description Data Nuha rce(s) Supporting Document(s) ID Date Data Source [id number] 04/22/2019 09:40:00 AM EST [facility] Name Value Range Interpretation Code Description Data Nuha rce(s) Supporting Document(s) Erythrocyte sedimentation rate by Westergren method 5 mm/hr 0-20 Normal (applies to non-numeric results) [facility] Thyrotropin [Units/volume] in Serum or Plasma 0.402 uIU/ML 0. 358-3.740 Normal (applies to non-numeric results) [facility] ([facility]) Thyroxine (T4) free [Mass/volume] in Serum or Plasma 1.28 ng/dL 0.76-1.46 Normal (applies to non-numeric results) [facility] ([facility] C reactive protein [Mass/volume] in Serum or Plasma by High sensitivity method Laboratory test result 0.00-0.30 Normal (applies to non-numeric results) [facility] ID Date Data Source [id number] 04/22/2019 09:40:00 AM EST [facility] ([facility]) Name Value Range Interpretation Code Description Data Nuha rce(s) Supporting Document(s) Vitamin B12 Level 871 pg/mL Normal (applies to non-numeri c results) [facility] VITAMIN B12 NORMAL RANGE NORMAL 247 - 911 PG/ML INDETERMINATE 211 - 246 PG/ML DEFICIENT LESS THAN 211 PG/ML Folate Laboratory test result Normal (applies to non-n umeric results) [facility]) FOLATE NORMAL RANGE NORMAL GREATER THAN 5.4 NG/ML INDETERMINATE 3.4-5.4 NG/ML DEFICIENT LESS THAN 3.4 NG/ML ID Date Data Source [id number] 04/22/2019 09:40:00 AM EST [facility] ([facility]) Name Value Range Interpretation Code Description Data Nuha rce(s) Supporting Document(s) Glucose, Fasting 104 mg/dL 70-100 Above high normal [facility] Glomerular Filtration Rate Laboratory test result Normal (applies to non- numeric results) [facility]) <content>Units are mL/min/1.73 m2</content>
<content></content>
<content>Chronic Kidney Disease Staging per NKF:</content>
<content></content>
<content>Stage I & II GFR >=60 Normal to Mildly Decreased</content>
<content>Stage III GFR 30- 59 Moderately Decreased</content>
<content>Stage IV GFR 15-29 Severely Decreased</content>
<content>Stage V GFR <15 Very Little GFR Left</content>
<content>ESRD GFR <15 on ZINC SKIMMER</content>
<content></content> Blood Urea Nitrogen 15 mg/dL 7-18 Normal (applies to non-nume deb results) [facility] ([facility]) Creatinine For GFR 0.85 mg/dL 0.55-1.30 Normal (applies to non -numeric results) [facility] ([facility]) Potassium Serum 4.1 meq/L 3.5-5.1 Normal (applies to non-numeric results) [facility] ([facility]) Sodium Level 138 meq/L 136-145 Normal (applies to non-numeric res ults) [facility] ([facility]) Chloride Level 104 meq/L 98-107 Normal (applies to non-numeric r esults) [facility] ([facility]) Carbon Dioxide Level 28 meq/L 21-32 Normal (applies to non-num zhane results) [facility] ([facility]) Ast/Sgot 11 U/L 7-37 Normal (applies to non-numeric resul ts) [facility] ([facility]) Calcium Level 9.8 mg/dL 8.5-10.1 Normal (applies to non-numeric re sults) [facility] ([facility]) Anion Gap 6 meq/L 8-16 Below low normal [facility] ( [facility]) Bilirubin,Total 1.1 mg/dL 0.2-1.0 Above high normal [facility] ([facility]) Alkaline Phosphatase 78 U/L 45-117 Normal (applies to non-num zhane results) [facility] ([facility]) Alt/SGPT 21 U/L 12-78 Normal (applies to non-numeric resul ts) [facility] ([facility]) Albumin 4.5 GM/DL 3.2-5.2 Normal (applies to non-numeric resul ts) [facility] ([facility]) Albumin/Globulin Ratio 1.41 1.00-1.93 Normal (applies to non-numeric results) [facility] ([facility]) Total Protein 7.7 GM/DL 6.4-8.2 Normal (applies to non-numeric re sults) [facility] ([facility]) ID Date Data Source [id number] 04/22/2019 09:40:00 AM EST [facility] ([facility]) Name Value Range Interpretation Code Description Data Nuha rce(s) Supporting Document(s) Red Blood Count 4.82 10 4.00-5.40 Normal (applies to non-numeric results) [facility] ([facility]) White Blood Count 9.0 10 4.0-10.0 Normal (applies to non-numeri c results) [facility] ([facility]) Hemoglobin 14.9 g/dL 12.0-15.5 Normal (applies to non-numeric resul ts) [facility] ([facility]) Hematocrit 44.9 % 36.0-47.0 Normal (applies to non-numeric resul ts) [facility] ([facility]) Mean Corpuscular Volume 93.2 fl 80.0-96.0 Normal ( applies to non-numeric results) [facility] ([facility]) Mean Corpuscular HGB Conc 33.2 g/dL 32.0-36.5 Normal (applies to non-numeric results) [facility] ([facility]) Mean Corpuscular Hemoglobin 30.9 pg 27.0-33.0 Norm al (applies to non-numeric results) [facility] ([facility]) Red Cell Distribution Width 11.7 % 11.5-14.5 Norm al (applies to non-numeric results) [facility] ([facility]) Lymph % 16.0 % 24.0-44.0 Below low normal [facility] ( [facility]) Neutrophils % 78.3 % 36.0-66.0 Above high normal [facility] ([facility]) Platelet Count, Automated 249 10 150-450 Normal (applies to non-numeric results) [facility] ([facility]) Baso % 0.2 % 0.0-1.0 Normal (applies to non-numeric resul ts) [facility] ([facility]) Eos % 0.8 % 0.0-3.0 Normal (applies to non-numeric resul ts) [facility] ([facility]) [place] % 4.4 % 0.0-5.0 Normal (applies to non-numeric resul ts) [facility] ([facility]) Immature Granulocyte % 0.3 % 0-3.0 Normal (applies to non-n umeric results) [facility] ([facility]) Nucleated Red Blood Cell % 0.0 % 0-0 Normal (applies to n on-numeric results) [facility] ([facility]) Neutrophils # 7.1 10 1.5-8.5 Normal (applies to non-numeric re sults) [facility] ([facility]) [place] # 0.4 10 0.0-0.8 Normal (applies to non-numeric resul ts) [facility] ([facility]) Baso # 0.0 10 0.0-0.2 Normal (applies to non-numeric resul ts) [facility] ([facility]) Eos # 0.1 10 0.0-0.5 Normal (applies to non-numeric resul ts) [facility] ([facility]) Lymph # 1.5 10 1.5-5.0 Normal (applies to non-numeric resul ts) [facility] ([facility]) Procedure Social History Code Duration Value Status Description Data Source(s ) Smoking 10/07/2019 12:00:00 AM EDT Patient has never smoked co mpleted Patient has never smoked [facility] ([facility] Smoking 08/12/2019 12:00:00 AM EDT Patient has never smoked co mpleted Patient has never smoked [facility] ([facility]) 03/05/2019 12:00:00 AM EST completed [facility] ([facility], ) Vital Signs ID Date Data Source UNK Name Value Range Interpretation Code Description Data Source(s) [place] body weight 125 [lb_av] 125 [lb_av] [facility] ([facility]) Oxygen saturation in Arterial blood by Pulse oximetry 98 % 98 % [facility] ([facility]) Body temperature 98.6 [degF] 98.6 [degF] [facility] ([facility]) Respiratory rate 18 /min 18 /min [facility] ( [facility]) Heart rate 75 /min 75 /min [facility] ([facility]) Body mass index (BMI) [Ratio] 23.7 kg/m2 23.7 k g/m2 [facility] Body weight 143.38 [lb_av] 143.38 [lb_av] [facility] ([facility]) Body height 65.2 [in_i] 65.2 [in_i] [facility] ([facility]) 5'5.20" Diastolic blood pressure 68 mm[Hg] 68 mm[Hg] [facility] ([facility]) Systolic blood pressure 112 mm[Hg] 112 mm[Hg] [facility] Body weight 63.504 kg 63.504 kg [facility] ([facility], ) [place] body weight 130 [lb_av] 130 [lb_av] [facility] ([facility], ) Body mass index (BMI) [Ratio] 22.6 kg/m2 22.6 k g/m2 [facility] ([facility], ) Body weight 140.00 [lb_av] 140.00 [lb_av] [facility] ([facility], ) Body height 66 [in_i] 66 [in_i] [facility] ([facility], ) 5'6" [place] body weight 125 [lb_av] 125 [lb_av] [facility] ([facility]) Oxygen saturation in Arterial blood by Pulse oximetry 98 % 98 % [facility] ([facility]) Body temperature 98.4 [degF] 98.4 [degF] [facility] ([facility]) Respiratory rate 18 /min 18 /min [facility] ( [facility]) Heart rate 87 /min 87 /min [facility] ([facility]) Body mass index (BMI) [Ratio] 23.6 kg/m2 23.6 k g/m2 [facility] ([facility]) Body weight 142.50 [lb_av] 142.50 [lb_av] [facility] ([facility]) Body height 65.2 [in_i] 65.2 [in_i] [facility] ([facility]) .20" Diastolic blood pressure 64 mm[Hg] 64 mm[Hg] [facility] ([facility]) Systolic blood pressure 114 mm[Hg] 114 mm[Hg] [facility] ([facility]) Body mass index (BMI) [Ratio] 23.4 kg/m2 23.4 k g/m2 [facility] ([facility]) Diastolic blood pressure 70 mm[Hg] 70 mm[Hg] [facility] ([facility]) Systolic blood pressure 109 mm[Hg] 109 mm[Hg] [facility] ([facility]) Respiratory rate 16 /min 16 /min [facility] ( [facility]) Heart rate 76 /min 76 /min [facility] ([facility] Body height 66 [in_i] 66 [in_i] [facility] 5'6" Body weight 145.12 [lb_av] 145.12 [lb_av] [facility] ([facility]) [place] body weight 125 [lb_av] 125 [lb_av] [facility] ([facility]) Oxygen saturation in Arterial blood by Pulse oximetry 99 % 99 % [facility] ([facility]) Body temperature 97.8 [degF] 97.8 [degF] [facility] ([facility]) Respiratory rate 18 /min 18 /min [facility] ( [facility]) Heart rate 75 /min 75 /min [facility] ([facility]) Body mass index (BMI) [Ratio] 24.1 kg/m2 24.1 k g/m2 [facility] ([facility]) Body weight 146.00 [lb_av] 146.00 [lb_av] [facility] ([facility]) Body height 65.2 [in_i] 65.2 [in_i] [facility] ([facility]) .20" Diastolic blood pressure 64 mm[Hg] 64 mm[Hg] [facility] ([facility]) Systolic blood pressure 102 mm[Hg] 102 mm[Hg] [facility] ([facility]) Oxygen saturation in Arterial blood by Pulse oximetry 99 % 99 % [facility] Body temperature 98.5 [degF] 98.5 [degF] [facility] ([facility]) Respiratory rate 18 /min 18 /min [facility] Heart rate 59 /min 59 /min [facility] ([facility]) Body mass index (BMI) [Ratio] 24.1 kg/m2 24.1 k g/m2 [facility] ([facility]) Body weight 145.50 [lb_av] 145.50 [lb_av] [facility] ([facility]) Body height 65.2 [in_i] 65.2 [in_i] [facility] 5'5.20" Diastolic blood pressure 64 mm[Hg] 64 mm[Hg] [facility] ([facility]) Systolic blood pressure 110 mm[Hg] 110 mm[Hg] M EDENT ([facility]) Diastolic blood pressure 72 mm[Hg] 72 mm[Hg] [facility] ([facility]) Systolic blood pressure 124 mm[Hg] 124 mm[Hg] e CW1 ([facility]) Body mass index (BMI) [Ratio] 24.18 kg/m2 24.18 kg/m2 [facility] Body height 66 [in_us] 66 [in_us] W1 ([facility]) Body weight Measured 149.8 [lb_av] 149.8 [lb_av ] [facility] ([facility]) Diastolic blood pressure 74 mm[Hg] 74 mm[Hg] eCW1 ([facility]) Systolic blood pressure 116 mm[Hg] 116 mm[Hg] e CW1 ([facility]) Body mass index (BMI) [Ratio] 23.82 kg/m2 23.82 kg/m2 [facility]) Body height 66 [in_us] 66 [in_us] W1 ([facility]) Body weight Measured 147.6 [lb_av] 147.6 [lb_av ] W1 ([facility]) Diastolic blood pressure 72 mm[Hg] 72 mm[Hg] eCW1 ([facility]) Systolic blood pressure 120 mm[Hg] 120 mm[Hg] e CW1 ([facility]) Body mass index (BMI) [Ratio] 23.79 kg/m2 23.79 kg/m2 W1 ([facility]) Body height 66 [in_us] 66 [in_us] eCW1 ([facility]) Body weight Measured 147.4 [lb_av] 147.4 [lb_av ] W1 ([facility]) Body mass index (BMI) [Ratio] 24.3 kg/m2 24.3 k g/m2 [facility] ([facility]) Body weight 147.12 [lb_av] 147.12 [lb_av] [facility] T ([facility]) Body height 65.2 [in_i] 65.2 [in_i] [facility] ([facility]) 5'5.20" Diastolic blood pressure 80 mm[Hg] 80 mm[Hg] [facility] ([facility]) Systolic blood pressure 122 mm[Hg] 122 mm[Hg] M EDENT ([facility]) Oxygen saturation in Arterial blood by Pulse oximetry 98 % 98 % [facility] ([facility]) Body temperature 99.3 [degF] 99.3 [degF] [facility] ([facility]) Respiratory rate 18 /min 18 /min [facility] ( [facility]) Heart rate 78 /min 78 /min [facility] ([facility]) Oxygen saturation in Arterial blood by [facility]ulse oximetry 98 % 98 % [facility] Body temperature 98.9 [degF] 98.9 [degF] [facility] ([facility]) Respiratory rate 18 /min 18 /min [facility] ( [facility]) Heart rate 99 /min 99 /min [facility] ([facility]) Body mass index (BMI) [Ratio] 24.5 kg/m2 24.5 k g/m2 [facility] ([facility]) Body weight 148.38 [lb_av] 148.38 [lb_av] [facility] ([facility]) Body height 65.2 [in_i] 65.2 [in_i] [facility] ([facility]) 5'5.20" Diastolic blood pressure 68 mm[Hg] 68 mm[Hg] [facility] ([facility]) Systolic blood pressure 108 mm[Hg] 108 mm[Hg] [facility] Oxygen saturation in Arterial blood by Pulse oximetry 98 % 98 % [facility] ([facility]) Body temperature 98.4 [degF] 98.4 [degF] [facility] ([facility]) Respiratory rate 16 /min 16 /min [facility] ( [facility]) Heart rate 87 /min 87 /min [facility] ([facility]) Body mass index (BMI) [Ratio] 25.2 kg/m2 25.2 k g/m2 [facility] ([facility]) Body weight 152.38 [lb_av] 152.38 [lb_av] [facility] ([facility]) Body height 65.2 [in_i] 65.2 [in_i] [facility] ([facility]) 5'5.20" Diastolic blood pressure 84 mm[Hg] 84 mm[Hg] [facility] ([facility]) Systolic blood pressure 124 mm[Hg] 124 mm[Hg] [facility] Body mass index (BMI) [Ratio] 24.5 kg/m2 24.5 k g/m2 [facility] ([facility], [facility]) Body height 66 [in_i] 66 [in_i] [facility] ([facility]) 5'6" Body weight 152.00 [lb_av] 152.00 [lb_av] [facility] T ([facility], [facility]) Body temperature 98.7 [degF] 98.7 [degF] [facility] ([facility], [facility]) Oxygen saturation in Arterial blood by Pulse oximetry 99 % 99 % [facility] ([facility], [facility]) Respiratory rate 16 /min 16 /min [facility] ( [facility], [facility]) Heart rate 78 /min 78 /min [facility] ([facility], [facility]) Diastolic blood pressure 52 mm[Hg] 52 mm[Hg] [facility] ([facility], [facility]) Systolic blood pressure 100 mm[Hg] 100 mm[Hg] M EDENT ([facility], [facility]) Diastolic blood pressure 86 mm[Hg] 86 mm[Hg] eCW1 ([facility]) Systolic blood pressure 136 mm[Hg] 136 mm[Hg] e CW1 ([facility]) Body mass index (BMI) [Ratio] 28.924 kg/m2 28.9 24 kg/m2 eCW1 ([facility]) Body height 66 [in_us] 66 [in_us] W1 ([facility]) Body weight Measured 179.2 [lb_av] 179.2 [lb_av ] [facility] Diastolic blood pressure 74 mm[Hg] 74 mm[Hg] eCW1 ([facility]) Systolic blood pressure 134 mm[Hg] 134 mm[Hg] e CW1 ([facility]) Body mass index (BMI) [Ratio] 29.117 kg/m2 29.1 17 kg/m2 W1 ([facility]) Body height 66 [in_us] 66 [in_us] eCW1 ([facility]) Body weight Measured 180.4 [lb_av] 180.4 [lb_av ] [facility] ([facility])
[2020-04-04] MEDS ORDERED: SERT50TA29 PO (13:24)
[2020-04-04] MEDS ORDERED: CLON0.5T2 PO (13:24)
[2020-04-04 14:02] LABS: HEMATOCRIT 41.6 % (36.0-47.0); HEMOGLOBIN 13.9 g/dl (12.0-15.5); MEAN CORPUSCULAR HGB CONC 33.4 g/dl (32.0-36.5); MEAN CORPUSCULAR VOLUME 92.7 fl (80.0-96.0); PLATELET COUNT, AUTOMATED 276 10^3/uL (150-450); RED BLOOD COUNT 4.49 10^6/uL (4.00-5.40); WHITE BLOOD COUNT 6.9 10^3/uL (4.0-10.0)
[2020-04-04 14:33] LABS: AMPHETAMINES LEVEL URINE NEGATIVE (NEGATIVE); BARBITURATES URINE NEGATIVE (NEGATIVE); BENZODIAZEPINES URINE NEGATIVE (NEGATIVE); CANNABINOIDS URINE NEGATIVE (NEGATIVE); COCAINE METABOLITE URINE NEGATIVE (NEGATIVE); METHADONE URINE NEGATIVE (NEGATIVE); OPIATES URINE NEGATIVE (NEGATIVE); PHENCYCLIDINE URINE NEGATIVE (NEGATIVE)
[2020-04-04 14:39] LABS: HCG, SERUM QUALITATIVE NEGATIVE (NEGATIVE)
[2020-04-04 14:45] LABS: ACETAMINOPHEN LEVEL < 2.0 UG/ML (10.0-30.0); ALBUMIN 4.7 GM/DL (3.2-5.2); ALT/SGPT 20 U/L (12-78); BILIRUBIN,DIRECT 0.2 MG/DL (0.0-0.2); BILIRUBIN,TOTAL 0.5 MG/DL (0.2-1.0); BLOOD UREA NITROGEN 15 MG/DL (7-18); CALCIUM LEVEL 9.1 MG/DL (8.5-10.1); CARBON DIOXIDE LEVEL 28 MEQ/L (21-32); CHLORIDE LEVEL 104 MEQ/L (98-107); CREATININE FOR GFR 0.72 MG/DL (0.55-1.30); ETHYL ALCOHOL (ETHANOL) < 0.003 % (0.000-0.010); GLOMERULAR FILTRATION RATE > 60.0 (>60); GLUCOSE, FASTING 91 MG/DL (70-100); POTASSIUM SERUM 3.6 MEQ/L (3.5-5.1); SALICYLATE LEVEL < 1.7 MG/DL (5.0-30.0); SODIUM LEVEL 139 MEQ/L (136-145); THYROID STIMULATING HORMONE 0.718 uIU/ML (0.358-3.740); TOTAL PROTEIN 7.9 GM/DL (6.4-8.2)
--- OUTSIDE RECORDS SUMMARY | 2020-04-04 15:03 | CCD ---
Author Author [facility] Organization [facility] Address Unknown Phone Unavailable Care Team Providers Care Digital Account Director Name Role Phone COURTNEY MILLER MD Unavailable [...] Ai, Dong PA Unavailable Unavailable Rossi, Sameera AUDIT TECH Unavailable Unavailable Rossi, Sameera AUDIT TECH Unavailable Unavailable Rossi, Sameera AUDIT TECH Unavailable Unavailable Rossi, Sameera AUDIT TECH Unavailable Unavailable Rossi, Sameera AUDIT TECH Unavailable Unavailable Rossi, Sameera AUDIT TECH Unavailable Unavailable Rossi, Sameera AUDIT TECH Unavailable Unavailable Rossi, Sameera AUDIT TECH Unavailable Unavailable Rossi, Sameera AUDIT TECH Unavailable Unavailable Rossi, Sameera AUDIT TECH Unavailable Unavailable Rossi, Sameera AUDIT TECH Unavailable Unavailable Ai, Dong PA Unavailable Unavailable [...] is protected by Article 27-F of the [facility] Public Health law. If you continue you may have access to information: Regarding HIV / AIDS; Provided by facilities licensed or operated by the [facility] Office of Mental Health; or Provided by the [facility] Office for People With Developmental Disabilities. If such information is present, then the following [facility] mandated warning applies: This information has been [...] law may result in a fine or group home sentence or both. A general authorization for the release of medical or other information is NOT sufficient authorization for further disc losure. Allergies and Adverse Reactions Type Description Substance Reaction Status Data Source(s ) sulfa sulfa sulfa Hives Active eCW1 ([facility]) sulfa sulfa sulfa Hives Active eCW1 ([facility]) sulfa sulfa sulfa Hives Active eCW1 ([facility]) sulfa sulfa sulfa Hives Active eCW1 ([facility]) sulfa sulfa sulfa Hives Active eCW1 ([facility]) Family History Family Member Name Family Member Gender Family Member Status Date o f Status Description Data Source(s) Unknown Male Problem MEDENT ([facility]) Unknown Unknown Problem MEDENT ([facility]) Encounters Encounter Providers Location Date Indications Data Source(s ) Outpatient Attender: Dong VILLARREAL [facility] 03/12/2020 02:00:00 PM EST MEDENT ([facility]) Outpatient Attender: Dong VILLARREAL [facility] 12/09/2019 01:20:00 PM EDT MEDENT ([facility]) Outpatient Attender: COURTNEY MILLER MD Main Office 10/07/2019 09:30:00 AM EDT MED[facility] ([facility] Outpatient Attender: Dong VILLARREAL [facility] 08/12/2019 10:20:00 AM EDT MEDENT ([facility]) Outpatient Attender: Dong VILLARREAL [facility] 08/09/2019 09:20:00 AM EDT MEDENT ([facility]) [facility] [address] [place] [address] 07/13/2019 12:00:00 AM EDT eCW1 ([facility]) [facility] [address] [place] [address] 07/06/2019 12:00:00 AM EDT eCW1 ([facility]) [facility] [address] [place] [address] 06/15/2019 12:00:00 AM EDT eCW1 ([facility]) Outpatient Attender: Dong VILLARREAL [facility] 05/24/2019 08:40:00 AM EDT MEDENT ([facility]) Outpatient Referrer: Dong VILLARREAL 05/10/2019 05:58:00 AM EDT [facility] Outpatient Referrer: Dong VILLARREAL 05/02/2019 12:30:00 PM EDT [facility] Outpatient Referrer: Dong VILLARREAL 04/27/2019 12:49:00 PM EDT [facility] [address] [place] [address] 04/27/2019 12:00:00 AM EDT eCW1 ([facility]) Outpatient Referrer: Dong VILLARREAL 04/26/2019 02:06:00 PM EDT [facility] Outpatient Referrer: Dong VILLARREAL 04/26/2019 01:57:00 PM EDT [facility] Outpatient Referrer: Dong VILLARREAL 04/25/2019 11:58:00 AM EDT [facility] Outpatient Referrer: Dong VILLARREAL 04/25/2019 11:39:00 AM EDT [facility] Outpatient Referrer: Samra VILLARREAL 04/25/2019 11:37:00 AM EDT [facility] Outpatient Attender: Dong VILLARREAL [facility] 04/25/2019 11:20:00 AM EDT MEDENT ([facility]) Outpatient Attender: Dong VILLARREAL [facility] 04/22/2019 07:40:00 AM EST MEDENT ([facility]) Outpatient Attender: Dong VILLARREAL [facility] 04/20/2019 08:00:00 AM EST MEDENT ([facility]) Outpatient Attender: Sameera waller 04/12/2019 07:00:00 AM EST MEDENT ([facility] [address] [place] [address] 03/15/2019 12:00:00 AM EST eCW1 ([facility]) [facility] [address] [place] [address] 03/14/2019 12:00:00 AM EST eCW1 ([facility]) [facility] [address] [place] [address] 03/09/2019 12:00:00 AM EST eCW1 ([facility]) [facility] [address] [place] [address] 02/28/2019 12:00:00 AM EST eCW1 ([facility]) [facility] [address] [place] [address] 02/21/2019 12:00:00 AM EST eCW1 ([facility]) [facility] [address] [place] [address] 02/18/2019 12:00:00 AM EST eCW1 ([facility]) [facility] [address] [place] [address] 2019 12:00:00 AM EST eCW1 ([facility]) Immunizations Vaccine Date Status Description Data Source(s) New in 2011. IIV4 12/09/2019 01:40:00 PM EDT completed MEDENT ([facility]) Medications Medication Brand Name Start Date Product Form Dose Route Admi nistrative Instructions Pharmacy Instructions Status Indications Reaction Description Data Source(s) doxycycline hyclate 100 MG Oral Tablet Doxycycline Hyclate 0 10/07/2019 12:00:00 AM EDT active [facility] Fluticasone Propionate Fluticasone Propionate 08/09/2019 12:00:00 AM E DT completed MEDENT ([facility]) Clonazepam 0.5 MG Oral Tablet Clonazepam 04/22/2019 12:00:00 AM EST ORAL active MEDENT ([facility]) desloratadine 5 MG Oral Tablet Desloratadine 04/20/2019 12:00:[address] ORAL active MEDENT ([facility]) 20 mg 04/12/2019 12:00:00 AM EST tablet 8 TAKE ONE TABLET BY MOUTH TWICE A DAY FOR 4 DAYS TAKE ONE TABLET BY MOUTH TWICE A DAY FOR 4 DAYS SOLD: 2019 [facility] Prednisone 20 MG Oral Tablet Prednisone 04/12/2019 12:00:00 AM EST active MEDENT ([facility]) 50 mcg/actuation 04/12/2019 12:00:00 AM EST spray,suspension 16 SPRAY 2 SPRAYS IN EACH NOSTRIL ONCE DAILY FOR 1 WEEK THEN 1 TO 2 SPRAYS IN EACH NOSTRIL DAILY SPRAY 2 SPRAYS IN EACH NOSTRIL ONCE NILES Y FOR 1 WEEK THEN 1 TO 2 SPRAYS IN EACH NOSTRIL DAILY SOLD: 04/12/2019 [facility] Proprionate [facility] [place] [facility] Fl[facility] Prop [facility]ionate Nasal [place] 04/12/2019 12:00:00 AM EST active MEDENT ([facility]) Sertraline 50 MG Oral Tablet [Zoloft] Zoloft 50 MG Zoloft 50 MG 03/15/2019 12:00:00 AM EST active 1 tablet eCW1 ([facility]) Sertraline 50 MG Oral Tablet [Zoloft] Zoloft 50 MG Zoloft 50 MG 03/15/2019 12:00:00 AM EST active 1 tablet eCW1 ([facility]) Sertraline 50 MG Oral Tablet [Zoloft] Zoloft 50 MG Zoloft 50 MG 03/15/2019 12:00:00 AM EST active 1 tablet eCW1 ([facility]) Insurance Providers Payer name Policy type / Coverage type Policy ID Covered green party ID Covered green party's relationship to harkins Policy Harkins Plan Information EMEDNY [id number] SP [id number] [facility] [id number] FA2 80 [id number] [facility] [id number] SP 80 [id number] MEDICAID [id number] SP [id number] MEDICARE C [id number] S [id number] [facility] O [id number] D [id number] [facility] [id number] 80 [id number] [facility] H [id number] Self [id number] [facility] EXCHANGE U [id number] Self [id number] [facility] O [id number] S [id number] [facility] Health Maintenance Organization (HMO) [id number] [facility] H [id number] Self [id number] [facility] Health Maintenance Organization (HMO) [id number] [facility] Commercial [id number] Family Dependent [id number] [facility] [employer] [employer] Commercial [id number] Family Dependent [id number] [facility] Commercial [id number] Family Dependent [id number] [facility] Health Maintenance Organization (HMO) [id number] Fa carroll Dependent [id number] [employer] C/O [employer] Commercial [id number] Family Dependen t [id number] [facility] Health Maintenance Organization (HMO) [id number] Fa carroll Dependent [id number] [facility] Health Care Health Maintenance Organization (HMO) [id number] Family Dependent [id number] [facility] Commercial [id number] Self [id number] [facility] Commercial [id number] Self [id number] [facility] Health Maintenance Organization (HMO) [id number] [facility] [employer] [id number] FA2 [id number] [employer] [id number] FA2 [id number] [employer] [id number] FA2 [id number] [facility] [place] [id number] FA2 [id number] [employer] [id number] FA [id number] [facility] Health Maintenance Organization (HMO) [id number] [facility] Commercial [id number] Family Dependent [id number] [facility] Health Care Commercial Family Dependent [facility] [id number] SP [id number] [facility] HEALTH CARE P [id number] D [id number] Problems, Conditions, and Diagnoses Code Display Name Description Problem Type Effective Dates Data Source(s) 48995922 Chronic rhinitis Chronic rhinitis Problem 10/07/2019 12 :00:00 AM EDT [facility] ([facility] F41.1 [id number] Generalized anxiety disorder Problem 020 12:00:00 AM EDT eCW1 ([facility]) F32.9 [id number] Depression Problem 04/27/2019 12:00:00 AM ED T eCW1 ([facility]) Surgeries/Procedures Procedure Description Date Indications Data Source(s) PERCUTANEOUS TESTS W/ALLERGENIC EXTRACTS 10/07/2019 12 :00:00 AM EDT [facility] ([facility]) INTRACUTANEOUS TESTS W/ALLERGENIC EXTRACTS 10/07/2019 12:00:00 AM EDT [facility] ([facility]) URINE TEST 06/15/2019 12:00:00 AM EDT eCW1 ([facility]) Etonogestrel (contraceptive) implant system, including impla nt and supplies 06/15/2019 12:00:00 AM EDT eCW1 ([facility]) INSERT DRUG IMPLANT DEVICE 06/15/2019 12:00:00 AM EDT eCW1 ([facility]) CARE VISIT 04/27/2019 12:00:00 AM EDT eCW1 ([facility]) OB Visit 02/28/2019 12:00:00 AM EST e CW1 ([facility]) Results ID Date Data Source [id number] 05/02/2019 12:00:00 AM EDT [facility] Patient Name: JESICA SINGLETON [id number] Date of : 1995 1 Date of Exam: 05/02/2019OLIVERIO Scott [id number]#: Fax: [phone] EXAM: MRI BRAIN WITHOUT&WITH CONTRASTPROCEDURE [...] rce(s) Supporting Document(s) ID Date Data Source [id number] 04/22/2019 09:40:00 AM EST [facility] Name Value Range Interpretation Code Description Data Nuha rce(s) Supporting Document(s) Erythrocyte sedimentation rate by Westergren method 5 mm/hr 0-20 Normal (applies to non-numeric results) [facility] Thyrotropin [Units/volume] in Serum or Plasma 0.402 uIU/ML 0. 358-3.740 Normal (applies to non-numeric results) [facility] ([facility]) Thyroxine (T4) free [Mass/volume] in Serum or Plasma 1.28 ng/dL 0.76-1.46 Normal (applies to non-numeric results) [facility] ([facility]) C reactive protein [Mass/volume] in Serum or Plasma by High sensitivity method Laboratory test result 0.00-0.30 Normal (applies to non-numeric results) [facility]) ID Date Data Source [id number] 04/22/2019 09:40:00 AM EST [facility] ([facility]) Name Value Range Interpretation Code Description Data Nuha rce(s) Supporting Document(s) Vitamin B12 Level 871 pg/mL Normal (applies to non-numeri c results) [facility] VITAMIN B12 NORMAL RANGE NORMAL 247 - 911 PG/ML INDETERMINATE 211 - 246 PG/ML DEFICIENT LESS THAN 211 PG/ML Folate Laboratory test result Normal (applies to non-n umeric results) [facility]) FOLATE NORMAL RANGE NORMAL GREATER THAN 5.4 NG/ML INDETERMINATE 3.4-5.4 NG/ML DEFICIENT LESS THAN 3.4 NG/ML ID Date Data Source [id number] 04/22/2019 09:40:00 AM EST [facility] ([facility]) Name Value Range Interpretation Code Description Data Nuha rce(s) Supporting Document(s) Glucose, Fasting 104 mg/dL 70-100 Above high normal [facility] Glomerular Filtration Rate Laboratory test result Normal (applies to non- numeric results) [facility]) <content>Units are mL/min/1.73 m2</content>
<content></content>
<content>Chronic Kidney Disease Staging per NKF:</content>
<content></content>
<content>Stage I & II GFR >=60 Normal to Mildly Decreased</content>
<content>Stage III GFR 30- 59 Moderately Decreased</content>
<content>Stage IV GFR 15-29 Severely Decreased</content>
<content>Stage V GFR <15 Very Little GFR Left</content>
<content>ESRD GFR <15 on FRONT OFFICE HELP</content>
<content></content> Blood Urea Nitrogen 15 mg/dL 7-18 Normal (applies to non-nume deb results) [facility] ([facility]) Creatinine For GFR 0.85 mg/dL 0.55-1.30 Normal (applies to non -numeric results) [facility] ([facility]) Potassium Serum 4.1 meq/L 3.5-5.1 Normal (applies to non-numeric results) [facility] ([facility]) Sodium Level 138 meq/L 136-145 Normal (applies to non-numeric res ults) [facility] ([facility]) Chloride Level 104 meq/L 98-107 Normal (applies to non-numeric r esults) [facility] ([facility]) Carbon Dioxide Level 28 meq/L 21-32 Normal (applies to non-num zhane results) [facility] ([facility]) Ast/Sgot 11 U/L 7-37 Normal (applies to non-numeric resul ts) [facility] ([facility]) Calcium Level 9.8 mg/dL 8.5-10.1 Normal (applies to non-numeric re sults) [facility] ([facility]) Anion Gap 6 meq/L 8-16 Below low normal [facility] ( [facility]) Bilirubin,Total 1.1 mg/dL 0.2-1.0 Above high normal [place] ([facility]) Alkaline Phosphatase 78 U/L 45-117 Normal (applies to non-num zhane results) [facility] ([facility]) Alt/SGPT 21 U/L 12-78 Normal (applies to non-numeric resul ts) [facility] ([facility]) Albumin 4.5 GM/DL 3.2-5.2 Normal (applies to non-numeric resul ts) [facility] ([facility]) Albumin/Globulin Ratio 1.41 1.00-1.93 Normal (applies to non-numeric results) [facility] ([facility]) Total Protein 7.7 GM/DL 6.4-8.2 Normal (applies to non-numeric re sults) MEDENT ([facility]) ID Date Data Source [id number] 04/22/2019 09:40:00 AM EST MEDENT ([facility]) Name Value Range Interpretation Code Description Data Nuha rce(s) Supporting Document(s) Red Blood Count 4.82 10 4.00-5.40 Normal (applies to non-numeric results) MEDENT ([facility]) White Blood Count 9.0 10 4.0-10.0 Normal (applies to non-numeri c results) MEDENT ([facility]) Hemoglobin 14.9 g/dL 12.0-15.5 Normal (applies to non-numeric resul ts) MED[facility] ([facility]) Hematocrit 44.9 % 36.0-47.0 Normal (applies to non-numeric resul ts) MEDENT ([facility]) Mean Corpuscular Volume 93.2 fl 80.0-96.0 Normal ( applies to non-numeric results) MED[facility] ([facility]) Mean Corpuscular HGB Conc 33.2 g/dL 32.0-36.5 Normal (applies to non-numeric results) MED[facility] ([facility]) Mean Corpuscular Hemoglobin 30.9 pg 27.0-33.0 Norm al (applies to non-numeric results) MEDENT ([facility]) Red Cell Distribution Width 11.7 % 11.5-14.5 Norm al (applies to non-numeric results) MEDENT ([facility]) Lymph % 16.0 % 24.0-44.0 Below low normal MEDENT ( [facility]) Neutrophils % 78.3 % 36.0-66.0 Above high normal MEDE NT ([facility]) Platelet Count, Automated 249 10 150-450 Normal (applies to non-numeric results) MED[facility] ([facility]) Baso % 0.2 % 0.0-1.0 Normal (applies to non-numeric resul ts) MEDENT ([facility]) Eos % 0.8 % 0.0-3.0 Normal (applies to non-numeric resul ts) MEDENT ([facility]) Braxton % 4.4 % 0.0-5.0 Normal (applies to non-numeric resul ts) MEDENT ([facility]) Immature Granulocyte % 0.3 % 0-3.0 Normal (applies to non-n umeric results) MEDENT ([facility]) Nucleated Red Blood Cell % 0.0 % 0-0 Normal (applies to n on-numeric results) MEDENT ([facility]) Neutrophils # 7.1 10 1.5-8.5 Normal (applies to non-numeric re sults) MEDENT ([facility]) Braxton # 0.4 10 0.0-0.8 Normal (applies to non-numeric resul ts) MEDENT ([facility]) Baso # 0.0 10 0.0-0.2 Normal (applies to non-numeric resul ts) MEDENT ([facility]) Eos # 0.1 10 0.0-0.5 Normal (applies to non-numeric resul ts) MEDENT ([facility]) Lymph # 1.5 10 1.5-5.0 Normal (applies to non-numeric resul ts) MEDENT ([facility]) Procedure Social History Code Duration Value Status Description Data Source(s ) Smoking 10/07/2019 12:00:00 AM EDT Patient has never smoked co mpleted Patient has never smoked MEDENT ([facility] ) Smoking 08/12/2019 12:00:00 AM EDT Patient has never smoked co mpleted Patient has never smoked MEDENT ([facility]) 03/05/2019 12:00:00 AM EST completed MEDENT ([facility] ) Vital Signs ID Date Data Source UNK Name Value Range Interpretation Code Description Data Source(s) [place] body weight 125 [lb_av] 125 [lb_av] MEDEN T ([facility]) Oxygen saturation in Arterial blood by Pulse oximetry 98 % 98 % MEDENT ([facility]) Body temperature 98.6 [degF] 98.6 [degF] MEDENT ([facility]) Respiratory rate 18 /min 18 /min MEDENT ( [facility]) Heart rate 75 /min 75 /min [facility] ([facility]) Body mass index (BMI) [Ratio] 23.7 kg/m2 23.7 k g/m2 [facility] Body weight 143.38 [lb_av] 143.38 [lb_av] MEDEN T ([facility]) Body height 65.2 [in_i] 65.2 [in_i] [facility] ([facility]) 5'5.20" Diastolic blood pressure 68 mm[Hg] 68 mm[Hg] [facility] ([facility]) Systolic blood pressure 112 mm[Hg] 112 mm[Hg] [facility] Body weight 63.504 kg 63.504 kg [facility] ([facility], ) [place] body weight 130 [lb_av] 130 [lb_av] MEDEN T ([facility], ) Body mass index (BMI) [Ratio] 22.6 kg/m2 22.6 k g/m2 [facility] ([facility] ) Body weight 140.00 [lb_av] 140.00 [lb_av] MEDEN T ([facility], ) Body height 66 [in_i] 66 [in_i] [facility] ([facility], ) 5'6" [place] body weight 125 [lb_av] 125 [lb_av] MEDEN T ([facility]) Oxygen saturation in Arterial blood by Pulse oximetry 98 % 98 % [facility] ([facility]) Body temperature 98.4 [degF] 98.4 [degF] [facility] ([facility]) Respiratory rate 18 /min 18 /min [facility] ( [facility]) Heart rate 87 /min 87 /min [facility] ([facility]) Body mass index (BMI) [Ratio] 23.6 kg/m2 23.6 k g/m2 [facility] ([facility]) Body weight 142.50 [lb_av] 142.50 [lb_av] MEDEN T ([facility]) Body height 65.2 [in_i] 65.2 [in_i] MEDENT ([facility]) .20" Diastolic blood pressure 64 mm[Hg] 64 mm[Hg] MEDENT ([facility]) Systolic blood pressure 114 mm[Hg] 114 mm[Hg] EDENT ([facility]) Body mass index (BMI) [Ratio] 23.4 kg/m2 23.4 k g/m2 MEDENT ([facility]) Diastolic blood pressure 70 mm[Hg] 70 mm[Hg] MEDENT ([facility]) Systolic blood pressure 109 mm[Hg] 109 mm[Hg] EDENT ([facility]) Respiratory rate 16 /min 16 /min MEDENT ( [facility]) Heart rate 76 /min 76 /min [facility] ([facility] Body height 66 [in_i] 66 [in_i] MED[facility]) 5'6" Body weight 145.12 [lb_av] 145.12 [lb_av] MEDEN T ([facility]) [place] body weight 125 [lb_av] 125 [lb_av] MEDEN T ([facility]) Oxygen saturation in Arterial blood by Pulse oximetry 99 % 99 % MEDENT ([facility]) Body temperature 97.8 [degF] 97.8 [degF] MEDENT ([facility]) Respiratory rate 18 /min 18 /min MED[facility] ( [facility]) Heart rate 75 /min 75 /min MED[facility] ([facility]) Body mass index (BMI) [Ratio] 24.1 kg/m2 24.1 k g/m2 MED[facility] ([facility]) Body weight 146.00 [lb_av] 146.00 [lb_av] MEDEN T ([facility]) Body height 65.2 [in_i] 65.2 [in_i] MEDENT ([facility]) .20" Diastolic blood pressure 64 mm[Hg] 64 mm[Hg] MEDENT ([facility]) Systolic blood pressure 102 mm[Hg] 102 mm[Hg] EDENT ([facility]) Oxygen saturation in Arterial blood by Pulse oximetry 99 % 99 % [facility] Body temperature 98.5 [degF] 98.5 [degF] MEDENT ([facility]) Respiratory rate 18 /min 18 /min [facility] Heart rate 59 /min 59 /min [facility] ([facility]) Body mass index (BMI) [Ratio] 24.1 kg/m2 24.1 k g/m2 MED[facility] ([facility]) Body weight 145.50 [lb_av] 145.50 [lb_av] MEDEN T ([facility]) Body height 65.2 [in_i] 65.2 [in_i] [facility] 5'5.20" Diastolic blood pressure 64 mm[Hg] 64 mm[Hg] [facility] ([facility]) Systolic blood pressure 110 mm[Hg] 110 mm[Hg] M EDENT ([facility]) Diastolic blood pressure 72 mm[Hg] 72 mm[Hg] eCW1 ([facility]) Systolic blood pressure 124 mm[Hg] 124 mm[Hg] e CW1 ([facility]) Body mass index (BMI) [Ratio] 24.18 kg/m2 24.18 kg/m2 [facility] ([facility]) Body height 66 [in_us] 66 [in_us] W1 ([facility]) Body weight Measured 149.8 [lb_av] 149.8 [lb_av ] [facility] ([facility]) Diastolic blood pressure 74 mm[Hg] 74 mm[Hg] eCW1 ([facility]) Systolic blood pressure 116 mm[Hg] 116 mm[Hg] e CW1 ([facility]) Body mass index (BMI) [Ratio] 23.82 kg/m2 23.82 kg/m2 [facility] ([facility]) Body height 66 [in_us] 66 [in_us] W1 ([facility]) Body weight Measured 147.6 [lb_av] 147.6 [lb_av ] W1 ([facility]) Diastolic blood pressure 72 mm[Hg] 72 mm[Hg] eCW1 ([facility]) Systolic blood pressure 120 mm[Hg] 120 mm[Hg] e CW1 ([facility]) Body mass index (BMI) [Ratio] 23.79 kg/m2 23.79 kg/m2 W1 ([facility]) Body height 66 [in_us] 66 [in_us] eCW1 ([facility]) Body weight Measured 147.4 [lb_av] 147.4 [lb_av ] W1 ([facility]) Body mass index (BMI) [Ratio] 24.3 kg/m2 24.3 k g/m2 [facility] ([facility]) Body weight 147.12 [lb_av] 147.12 [lb_av] MEDEN T ([facility]) Body height 65.2 [in_i] 65.2 [in_i] [facility] ([facility]) 5'5.20" Diastolic blood pressure 80 mm[Hg] 80 mm[Hg] [facility] ([facility]) Systolic blood pressure 122 mm[Hg] 122 mm[Hg] M EDENT ([facility]) Oxygen saturation in Arterial blood by Pulse oximetry 98 % 98 % [facility] ([facility]) Body temperature 99.3 [degF] 99.3 [degF] [facility] ([facility]) Respiratory rate 18 /min 18 /min [facility] ( [facility]) Heart rate 78 /min 78 /min [facility] ([facility]) Oxygen saturation in Arterial blood by Pulse oximetry 98 % 98 % [facility] Body temperature 98.9 [degF] 98.9 [degF] [facility] ([facility]) Respiratory rate 18 /min 18 /min [facility] ( [facility]) Heart rate 99 /min 99 /min [facility] ([facility]) Body mass index (BMI) [Ratio] 24.5 kg/m2 24.5 k g/m2 [facility] ([facility]) Body weight 148.38 [lb_av] 148.38 [lb_av] [facility] T ([facility]) Body height 65.2 [in_i] 65.2 [in_i] [facility] ([facility]) 5'5.20" Diastolic blood pressure 68 mm[Hg] 68 mm[Hg] [facility] ([facility]) Systolic blood pressure 108 mm[Hg] 108 mm[Hg] [facility] Oxygen saturation in Arterial blood by Pulse oximetry 98 % 98 % [facility] ([facility]) Body temperature 98.4 [degF] 98.4 [degF] [facility] ([facility]) Respiratory rate 16 /min 16 /min [facility] ( [facility]) Heart rate 87 /min 87 /min [facility] ([facility]) Body mass index (BMI) [Ratio] 25.2 kg/m2 25.2 k g/m2 [facility] ([facility]) Body weight 152.38 [lb_av] 152.38 [lb_av] [facility] T ([facility]) Body height 65.2 [in_i] 65.2 [in_i] [facility] ([facility]) 5'5.20" Diastolic blood pressure 84 mm[Hg] 84 mm[Hg] [facility] ([facility]) Systolic blood pressure 124 mm[Hg] 124 mm[Hg] [facility] Body mass index (BMI) [Ratio] 24.5 kg/m2 24.5 k g/m2 MEDENT ([facility], [facility]) Body height 66 [in_i] 66 [in_i] [facility] ([facility]) 5'6" Body weight 152.00 [lb_av] 152.00 [lb_av] MEDEN T ([facility], [facility]) Body temperature 98.7 [degF] 98.7 [degF] MEDENT ([facility], [facility]) Oxygen saturation in Arterial blood by Pulse oximetry 99 % 99 % [facility] ([facility], [facility]) Respiratory rate 16 /min 16 /min [facility] ( [facility], [facility]) Heart rate 78 /min 78 /min [facility] ([facility], [facility]) Diastolic blood pressure 52 mm[Hg] 52 mm[Hg] MEDENT ([facility], [facility]) Systolic blood pressure 100 mm[Hg] 100 mm[Hg] M EDENT ([facility], [facility]) Diastolic blood pressure 86 mm[Hg] 86 mm[Hg] eCW1 ([facility]) Systolic blood pressure 136 mm[Hg] 136 mm[Hg] e CW1 ([facility]) Body mass index (BMI) [Ratio] 28.924 kg/m2 28.9 24 kg/m2 eCW1 ([facility]) Body height 66 [in_us] 66 [in_us] W1 ([facility]) Body weight Measured 179.2 [lb_av] 179.2 [lb_av ] [facility] ([facility]) Diastolic blood pressure 74 mm[Hg] 74 mm[Hg] eCW1 ([facility]) Systolic blood pressure 134 mm[Hg] 134 mm[Hg] e CW1 ([facility]) Body mass index (BMI) [Ratio] 29.117 kg/m2 29.1 17 kg/m2 W1 ([facility]) Body height 66 [in_us] 66 [in_us] eCW1 ([facility]) Body weight Measured 180.4 [lb_av] 180.4 [lb_av ] [facility] ([facility])
[2020-04-04] MEDS ORDERED: traZODone 50 MG TAB PO PRN (17:45)
[2020-04-04] MEDS ORDERED: MAALOX 30 ML SUSP *UDC PO PRN (17:45)
[2020-04-04] MEDS ORDERED: OLANZapine ORAL DISINTEGRATING TAB 5MG PO PRN (17:45)
[2020-04-04] MEDS ORDERED: MOM 30ML SUSPENSION UDC PO PRN (17:45)
[2020-04-04] MEDS ORDERED: ACETAMINOPHEN TAB 650MG DOSE (2X325MG) PO PRN (17:45)
--- OUTSIDE RECORDS SUMMARY | 2020-04-04 18:29 | CCD ---
Author Author [facility] Organization [facility] Address Unknown Phone Unavailable Care Team Providers Care Sales Center Associate Name Role Phone COURTNEY MILLER MD Unavailable Unavailable COURTNEY MILLER MD Unavailable Unavailable COURTNEY MILLER MD Unavailable Unavailable COURTNEY MILLER MD Unavailable Unavailable COURTNEY MILLER MD Unavailable Unavailable COURTNEY MILLER MD Unavailable Unavailable COURTNEY MILLER MD Unavailable Unavailable COURTNEY MILLER MD Unavailable Unavailable COURTNEY MILLER MD Unavailable Unavailable COURTNEY MILLER MD Unavailable Unavailable COURTNEY MILLER MD Unavailable Unavailable COURTNEY MLILER MD Unavailable Unavailable COURTNEY MILLER MD Unavailable Unavailable COURTNEY MILLER MD Unavailable Unavailable COURTNEY MILLER MD Unavailable Unavailable COURTNEY MILLER MD Unavailable Unavailable CHROSTOWSKI, COURTNEY MD Unavailable Unavailable CHROSTOWSKI, COURNTEY MD Unavailable Unavailable CHROSTOWSKI, COURTNEY MD Unavailable [...] Ai, Dong PA Unavailable Unavailable Rossi, Sameera ELECTRO MECHANIC Unavailable Unavailable Rossi, Sameera ELECTRO MECHANIC Unavailable Unavailable Rossi, Sameera ELECTRO MECHANIC Unavailable Unavailable Rossi, Sameera ELECTRO MECHANIC Unavailable Unavailable Rossi, Sameera ELECTRO MECHANIC Unavailable Unavailable Rossi, Sameera ELECTRO MECHANIC Unavailable Unavailable Rossi, Sameear ELECTRO MECHANIC Unavailable Unavailable Rossi, Sameera ELECTRO MECHANIC Unavailable Unavailable Rossi, Sameera ELECTRO MECHANIC Unavailable Unavailable Rossi, Sameera ELECTRO MECHANIC Unavailable Unavailable Rossi, Sameera ELECTRO MECHANIC Unavailable Unavailable Ai, Dong PA Unavailable Unavailable [...] C Samra PA Unavailable Unavailable Stewart, C Asmra PA Unavailable Unavailable Stewart, C Samra PA [...] is protected by Article 27-F of the [facility] Public Health law. If you continue you may have access to information: Regarding HIV / AIDS; Provided by facilities licensed or operated by the [facility] Office of Mental Health; or Provided by the [facility] Office for People With Developmental Disabilities. If such information is present, then the following [facility] mandated warning applies: This information has been [...] law may result in a fine or chcf sentence or both. A general authorization for the release of medical or other information is NOT sufficient authorization for further disc losure. Allergies and Adverse Reactions Type Description Substance Reaction Status Data Source(s ) sulfa sulfa sulfa Hives Active eCW1 ([facility]) sulfa sulfa sulfa Hives Active eCW1 ([facility]) sulfa sulfa sulfa Hives Active eCW1 ([facility]) sulfa sulfa sulfa Hives Active eCW1 ([facility]) sulfa sulfa sulfa Hives Active eCW1 ([facility]) Family History Family Member Name Family Member Gender Family Member Status Date o f Status Description Data Source(s) Unknown Male Problem MEDENT ([facility]) Unknown Unknown Problem [facility] ([facility]) Encounters Encounter Providers Location Date Indications Data Source(s ) Outpatient Attender: Dong VILLARREAL [facility] 03/12/2020 02:00:00 PM EST MED[facility] ([facility]) Outpatient Attender: Dong VILLARREAL [facility] 12/09/2019 01:20:00 PM EDT MED[facility] ([facility]) Outpatient Attender: COURTNEY MILLER MD Main Office 10/07/2019 09:30:00 AM EDT [facility] ([facility] Outpatient Attender: Dong VILLARREAL [facility] 08/12/2019 10:20:00 AM EDT MED[facility] ([facility]) Outpatient Attender: Dong VILLARREAL [facility] 08/09/2019 09:20:00 AM EDT MED[facility] ([facility]) [facility] [address] [place] [address] 07/13/2019 12:00:00 AM EDT eCW1 ([facility]) [facility] [address] [place] [address] 07/06/2019 12:00:00 AM EDT eCW1 ([facility]) [facility] [address] [place] [address] 06/15/2019 12:00:00 AM EDT eCW1 ([facility]) Outpatient Attender: Dong VILLARREAL [facility] 05/24/2019 08:40:00 AM EDT MEDENT ([facility]) Outpatient Referrer: Dong VILLARREAL 05/10/2019 05:58:00 AM EDT [facility] Outpatient Referrer: Dong VILLARREAL 05/02/2019 12:30:00 PM EDT [facility] Outpatient Referrer: Dong VILLARREAL 04/27/2019 12:49:00 PM EDT [facility] [address] [place] [address] 04/27/2019 12:00:00 AM EDT eCW1 ([facility]) Outpatient Referrer: Dong VILLARREAL 04/26/2019 02:06:00 PM EDT [facility] Outpatient Referrer: Dong VILLARREAL 04/26/2019 01:57:00 PM EDT [facility] Outpatient Referrer: Dong VILLARREAL 04/25/2019 11:58:00 AM EDT [facility] Outpatient Referrer: Dong VILLARREAL 04/25/2019 11:39:00 AM EDT [facility] Outpatient Referrer: Samra VILLARREAL 04/25/2019 11:37:00 AM EDT [facility] Outpatient Attender: Dong VILLARREAL [facility] 04/25/2019 11:20:00 AM EDT MEDENT ([facility]) Outpatient Attender: Dong VILLARREAL [facility] 04/22/2019 07:40:00 AM EST MEDENT ([facility]) Outpatient Attender: Dong VILLARREAL [facility] 04/20/2019 08:00:00 AM EST MED[facility] ([facility]) Outpatient Attender: Sameera waller 04/12/2019 07:00:00 AM EST [facility] ([facility] [address] [place] [address] 03/15/2019 12:00:00 AM EST eCW1 ([facility]) [facility] [address] [place] [address] 03/14/2019 12:00:00 AM EST eCW1 ([facility]) [facility] [address] [place] [address] 03/09/2019 12:00:00 AM EST eCW1 ([facility]) [facility] [address] [place] [address] 02/28/2019 12:00:00 AM EST eCW1 ([facility]) [facility] [address] [place] [address] 02/21/2019 12:00:00 AM EST eCW1 ([facility]) [facility] [address] [place] [address] 02/18/2019 12:00:00 AM EST eCW1 ([facility]) [facility] [address] [place] [address] 2019 12:00:00 AM EST eCW1 ([facility]) Immunizations Vaccine Date Status Description Data Source(s) New in 2011. IIV4 12/09/2019 01:40:00 PM EDT completed MEDENT ([facility]) Medications Medication Brand Name Start Date Product Form Dose Route Admi nistrative Instructions Pharmacy Instructions Status Indications Reaction Description Data Source(s) doxycycline hyclate 100 MG Oral Tablet Doxycycline Hyclate 0 10/07/2019 12:00:00 AM EDT active [facility] Fluticasone Propionate Fluticasone Propionate 08/09/2019 12:00:00 AM E DT completed MEDENT ([facility]) Clonazepam 0.5 MG Oral Tablet Clonazepam 04/22/2019 12:00:00 AM EST ORAL active MEDENT ([facility]) desloratadine 5 MG Oral Tablet Desloratadine 04/20/2019 12:00:[address] ORAL active MEDENT ([facility]) 20 mg 04/12/2019 12:00:00 AM EST tablet 8 TAKE ONE TABLET BY MOUTH TWICE A DAY FOR 4 DAYS TAKE ONE TABLET BY MOUTH TWICE A DAY FOR 4 DAYS SOLD: 2019 [facility] Prednisone 20 MG Oral Tablet Prednisone 04/12/2019 12:00:00 AM EST active MEDENT ([facility]) 50 mcg/actuation 04/12/2019 12:00:00 AM EST spray,suspension 16 SPRAY 2 SPRAYS IN EACH NOSTRIL ONCE DAILY FOR 1 WEEK THEN 1 TO 2 SPRAYS IN EACH NOSTRIL DAILY SPRAY 2 SPRAYS IN EACH NOSTRIL ONCE NILES Y FOR 1 WEEK THEN 1 TO 2 SPRAYS IN EACH NOSTRIL DAILY SOLD: 04/12/2019 [facility] Proprionate [facility] [place] [facility] Prop [facility]ionate Nasal [place] 04/12/2019 12:00:00 AM EST active MEDENT ([facility]) Sertraline 50 MG Oral Tablet [Zoloft] Zoloft 50 MG Zoloft 50 MG 03/15/2019 12:00:00 AM EST active 1 tablet eCW1 ([facility]) Sertraline 50 MG Oral Tablet [Zoloft] Zoloft 50 MG Zoloft 50 MG 03/15/2019 12:00:00 AM EST active 1 tablet eCW1 ([facility]) Sertraline 50 MG Oral Tablet [Zoloft] Zoloft 50 MG Zoloft 50 MG 03/15/2019 12:00:00 AM EST active 1 tablet eCW1 ([facility]) Insurance Providers Payer name Policy type / Coverage type Policy ID Covered green party ID Covered green party's relationship to harkins Policy Harkins Plan Information EMEDNY [id number] SP [id number] [facility] [id number] FA2 80 [id number] [facility] [id number] SP [id number] MEDICAID [id number] SP [id number] MEDICARE C [id number] S [id number] [facility] O [id number] D [id number] [facility] [id number] [facility] H [id number] Self [id number] [facility] EXCHANGE U [id number] Self [id number] [facility] O [id number] S [id number] [facility] Health Maintenance Organization (HMO) [id number] [facility] H [id number] Self [id number] [facility] Health Maintenance Organization (HMO) [id number] [facility] Commercial [id number] Family Dependent [id number] [facility] [employer] Commercial [id number] Family Dependent [id number] Blue [facility] Commercial [id number] Family Dependent [id number] [facility] Health Maintenance Organization (HMO) [id number] Fa carroll Dependent [id number] [employer] Commercial [id number] Family Dependen t [id number] [facility] Health Maintenance Organization (HMO) [id number] Fa carroll Dependent [id number] [facility] Health Care Health Maintenance Organization (HMO) [id number] Family Dependent [id number] [facility] Commercial [id number] Self [id number] [facility] Commercial [id number] Self [id number] [facility] Health Maintenance Organization (HMO) [id number] [employer] [id number] FA2 [id number] [employer] [id number] FA2 [id number] [employer] [id number] FA2 [id number] [facility] [id number] FA2 [id number] [employer] [id number] FA [id number] [facility] Health Maintenance Organization (HMO) [id number] [facility] Commercial [id number] Family Dependent [id number] [facility] Health Care Commercial Family Dependent [facility] [id number] SP [id number] [facility] HE[facility] CARE P [id number] D [id number] Problems, Conditions, and Diagnoses Code Display Name Description Problem Type Effective Dates Data Source(s) 16523232 Chronic rhinitis Chronic rhinitis Problem 10/07/2019 12 :00:00 AM EDT [facility] ([facility] F41.1 [id number] Generalized anxiety disorder Problem 020 12:00:00 AM EDT eCW1 ([facility]) F32.9 [id number] Depression Problem 04/27/2019 12:00:00 AM ED T eCW1 ([facility]) Surgeries/Procedures Procedure Description Date Indications Data Source(s) PERCUTANEOUS TESTS W/ALLERGENIC EXTRACTS 10/07/2019 12 :00:00 AM EDT [facility] ([facility]) INTRACUTANEOUS TESTS W/ALLERGENIC EXTRACTS 10/07/2019 12:00:00 AM EDT [facility] ([facility]) URINE TEST 06/15/2019 12:00:00 AM EDT eCW1 ([facility]) Etonogestrel (contraceptive) implant system, including impla nt and supplies 06/15/2019 12:00:00 AM EDT eCW1 ([facility]) INSERT DRUG IMPLANT DEVICE 06/15/2019 12:00:00 AM EDT eCW1 ([facility]) CARE VISIT 04/27/2019 12:00:00 AM EDT eCW1 ([facility]) OB Visit 02/28/2019 12:00:00 AM EST e CW1 ([facility]) Results ID Date Data Source [id number] 05/02/2019 12:00:00 AM EDT [facility] Patient Name: JESICA SINGLETON [id number] Date of : 1995 2 Date of Exam: 05/02/2019OLIVERIO Scott [id number]#: Fax: [phone] EXAM: MRI BRAIN WITHOUT&WITH CONTRASTPROCEDURE [...] rce(s) Supporting Document(s) ID Date Data Source [id number] 04/22/2019 09:40:00 AM EST [facility] Name Value Range Interpretation Code Description Data Nuha rce(s) Supporting Document(s) Erythrocyte sedimentation rate by Westergren method 5 mm/hr 0-20 Normal (applies to non-numeric results) [facility]) Thyrotropin [Units/volume] in Serum or Plasma 0.402 uIU/ML 0. 358-3.740 Normal (applies to non-numeric results) [facility] ([facility]) Thyroxine (T4) free [Mass/volume] in Serum or Plasma 1.28 ng/dL 0.76-1.46 Normal (applies to non-numeric results) [facility] ([facility]) C reactive protein [Mass/volume] in Serum or Plasma by High sensitivity method Laboratory test result 0.00-0.30 Normal (applies to non-numeric results) [facility]) ID Date Data Source [id number] 04/22/2019 09:40:00 AM EST [facility] ([facility]) Name Value Range Interpretation Code Description Data Nuha rce(s) Supporting Document(s) Vitamin B12 Level 871 pg/mL Normal (applies to non-numeri c results) [facility]) VITAMIN B12 NORMAL RANGE NORMAL 247 - 911 PG/ML INDETERMINATE 211 - 246 PG/ML DEFICIENT LESS THAN 211 PG/ML Folate Laboratory test result Normal (applies to non-n umeric results) [facility]) FOLATE NORMAL RANGE NORMAL GREATER THAN 5.4 NG/ML INDETERMINATE 3.4-5.4 NG/ML DEFICIENT LESS THAN 3.4 NG/ML ID Date Data Source [id number] 04/22/2019 09:40:00 AM EST [facility] ([facility]) Name Value Range Interpretation Code Description Data Nuha rce(s) Supporting Document(s) Glucose, Fasting 104 mg/dL 70-100 Above high normal [facility]) Glomerular Filtration Rate Laboratory test result Normal (applies to non- numeric results) [facility] ([facility]) <content>Units are mL/min/1.73 m2</content>
<content></content>
<content>Chronic Kidney Disease Staging per NKF:</content>
<content></content>
<content>Stage I & II GFR >=60 Normal to Mildly Decreased</content>
<content>Stage III GFR 30- 59 Moderately Decreased</content>
<content>Stage IV GFR 15-29 Severely Decreased</content>
<content>Stage V GFR <15 Very Little GFR Left</content>
<content>ESRD GFR <15 on TOP FORMER</content>
<content></content> Blood Urea Nitrogen 15 mg/dL 7-18 Normal (applies to non-nume deb results) [facility] ([facility]) Creatinine For GFR 0.85 mg/dL 0.55-1.30 Normal (applies to non -numeric results) [facility] ([facility]) Potassium Serum 4.1 meq/L 3.5-5.1 Normal (applies to non-numeric results) [facility] ([facility]) Sodium Level 138 meq/L 136-145 Normal (applies to non-numeric res ults) [facility] ([facility]) Chloride Level 104 meq/L 98-107 Normal (applies to non-numeric r esults) [facility] ([facility]) Carbon Dioxide Level 28 meq/L 21-32 Normal (applies to non-num zhane results) [facility] ([facility]) Ast/Sgot 11 U/L 7-37 Normal (applies to non-numeric resul ts) [facility] ([facility]) Calcium Level 9.8 mg/dL 8.5-10.1 Normal (applies to non-numeric re sults) [facility] ([facility]) Anion Gap 6 meq/L 8-16 Below low normal [facility] ( [facility] Bilirubin,Total 1.1 mg/dL 0.2-1.0 Above high normal [facility] ([facility]) Alkaline Phosphatase 78 U/L 45-117 Normal (applies to non-num zhane results) [facility] ([facility]) Alt/SGPT 21 U/L 12-78 Normal (applies to non-numeric resul ts) [facility] ([facility]) Albumin 4.5 GM/DL 3.2-5.2 Normal (applies to non-numeric resul ts) [facility] ([facility]) Albumin/Globulin Ratio 1.41 1.00-1.93 Normal (applies to non-numeric results) [facility] ([facility]) Total Protein 7.7 GM/DL 6.4-8.2 Normal (applies to non-numeric re sults) [facility] ([facility]) ID Date Data Source [id number] 04/22/2019 09:40:00 AM EST [facility] ([facility]) Name Value Range Interpretation Code Description Data Nuha rce(s) Supporting Document(s) Red Blood Count 4.82 10 4.00-5.40 Normal (applies to non-numeric results) [facility] ([facility]) White Blood Count 9.0 10 4.0-10.0 Normal (applies to non-numeri c results) [facility] ([facility]) Hemoglobin 14.9 g/dL 12.0-15.5 Normal (applies to non-numeric resul ts) [facility] ([facility]) Hematocrit 44.9 % 36.0-47.0 Normal (applies to non-numeric resul ts) [facility] ([facility]) Mean Corpuscular Volume 93.2 fl 80.0-96.0 Normal ( applies to non-numeric results) [facility] ([facility]) Mean Corpuscular HGB Conc 33.2 g/dL 32.0-36.5 Normal (applies to non-numeric results) [facility] ([facility]) Mean Corpuscular Hemoglobin 30.9 pg 27.0-33.0 Norm al (applies to non-numeric results) [facility] ([facility]) Red Cell Distribution Width 11.7 % 11.5-14.5 Norm al (applies to non-numeric results) [facility] ([facility] Lymph % 16.0 % 24.0-44.0 Below low normal [facility] ( [facility] Neutrophils % 78.3 % 36.0-66.0 Above high normal [facility] ([facility]) Platelet Count, Automated 249 10 150-450 Normal (applies to non-numeric results) [facility] ([facility]) Baso % 0.2 % 0.0-1.0 Normal (applies to non-numeric resul ts) [facility] ([facility]) Eos % 0.8 % 0.0-3.0 Normal (applies to non-numeric resul ts) [facility] ([facility]) [place] % 4.4 % 0.0-5.0 Normal (applies to non-numeric resul ts) [facility] ([facility]) Immature Granulocyte % 0.3 % 0-3.0 Normal (applies to non-n umeric results) [facility] ([facility]) Nucleated Red Blood Cell % 0.0 % 0-0 Normal (applies to n on-numeric results) [facility] ([facility]) Neutrophils # 7.1 10 1.5-8.5 Normal (applies to non-numeric re sults) [facility] ([facility] [place] # 0.4 10 0.0-0.8 Normal (applies to non-numeric resul ts) [facility] ([facility]) Baso # 0.0 10 0.0-0.2 Normal (applies to non-numeric resul ts) [facility] ([facility]) Eos # 0.1 10 0.0-0.5 Normal (applies to non-numeric resul ts) [facility] ([facility] Lymph # 1.5 10 1.5-5.0 Normal (applies to non-numeric resul ts) [facility] ([facility]) Procedure Social History Code Duration Value Status Description Data Source(s ) Smoking 10/07/2019 12:00:00 AM EDT Patient has never smoked co mpleted Patient has never smoked [facility] ([facility] ) Smoking 08/12/2019 12:00:00 AM EDT Patient has never smoked co mpleted Patient has never smoked [facility] ([facility]) 03/05/2019 12:00:00 AM EST completed MEDENT ([facility], ) Vital Signs ID Date Data Source UNK Name Value Range Interpretation Code Description Data Source(s) [place] body weight 125 [lb_av] 125 [lb_av] MED[facility] T ([facility] Oxygen saturation in Arterial blood by Pulse oximetry 98 % 98 % [facility] ([facility] Body temperature 98.6 [degF] 98.6 [degF] [facility] ([facility] Respiratory rate 18 /min 18 /min [facility] ( [facility] Heart rate 75 /min 75 /min [facility] ([facility] Body mass index (BMI) [Ratio] 23.7 kg/m2 23.7 k g/m2 [facility] Body weight 143.38 [lb_av] 143.38 [lb_av] MEDEN T ([facility] Body height 65.2 [in_i] 65.2 [in_i] [facility] ([facility]) 5'5.20" Diastolic blood pressure 68 mm[Hg] 68 mm[Hg] [facility] ([facility] Systolic blood pressure 112 mm[Hg] 112 mm[Hg] [facility] Body weight 63.504 kg 63.504 kg [facility] ([facility], ) [place] body weight 130 [lb_av] 130 [lb_av] MEDEN T ([facility], ) Body mass index (BMI) [Ratio] 22.6 kg/m2 22.6 k g/m2 [facility] ([facility], ) Body weight 140.00 [lb_av] 140.00 [lb_av] MEDEN T ([facility], ) Body height 66 [in_i] 66 [in_i] [facility] ([facility], ) 5'6" [place] body weight 125 [lb_av] 125 [lb_av] MEDEN T ([facility] Oxygen saturation in Arterial blood by Pulse oximetry 98 % 98 % [facility] ([facility] Body temperature 98.4 [degF] 98.4 [degF] [facility] ([facility] Respiratory rate 18 /min 18 /min [facility] ( [facility] Heart rate 87 /min 87 /min [facility] ([facility] Body mass index (BMI) [Ratio] 23.6 kg/m2 23.6 k g/m2 [facility] ([facility] Body weight 142.50 [lb_av] 142.50 [lb_av] [facility] T ([facility] Body height 65.2 [in_i] 65.2 [in_i] MEDENT ([facility]) .20" Diastolic blood pressure 64 mm[Hg] 64 mm[Hg] MEDENT ([facility]) Systolic blood pressure 114 mm[Hg] 114 mm[Hg] EDENT ([facility]) Body mass index (BMI) [Ratio] 23.4 kg/m2 23.4 k g/m2 MEDENT ([facility]) Diastolic blood pressure 70 mm[Hg] 70 mm[Hg] MEDENT ([facility]) Systolic blood pressure 109 mm[Hg] 109 mm[Hg] EDENT ([facility]) Respiratory rate 16 /min 16 /min MEDENT ( [facility]) Heart rate 76 /min 76 /min MEDENT ([facility]) Body height 66 [in_i] 66 [in_i] MEDENT ([facility]) 5'6" Body weight 145.12 [lb_av] 145.12 [lb_av] MEDEN T ([facility]) [place] body weight 125 [lb_av] 125 [lb_av] MEDEN T ([facility]) Oxygen saturation in Arterial blood by Pulse oximetry 99 % 99 % MEDENT ([facility]) Body temperature 97.8 [degF] 97.8 [degF] MEDENT ([facility]) Respiratory rate 18 /min 18 /min MEDENT ( [facility] Heart rate 75 /min 75 /min MEDENT ([facility]) Body mass index (BMI) [Ratio] 24.1 kg/m2 24.1 k g/m2 MEDENT ([facility]) Body weight 146.00 [lb_av] 146.00 [lb_av] MEDEN T ([facility]) Body height 65.2 [in_i] 65.2 [in_i] MEDENT ([facility]) .20" Diastolic blood pressure 64 mm[Hg] 64 mm[Hg] MEDENT ([facility]) Systolic blood pressure 102 mm[Hg] 102 mm[Hg] EDENT ([facility]) Oxygen saturation in Arterial blood by Pulse oximetry 99 % 99 % [facility] Body temperature 98.5 [degF] 98.5 [degF] MEDENT ([facility]) Respiratory rate 18 /min 18 /min [facility] Heart rate 59 /min 59 /min [facility] ([facility]) Body mass index (BMI) [Ratio] 24.1 kg/m2 24.1 k g/m2 MEDENT ([facility]) Body weight 145.50 [lb_av] 145.50 [lb_av] MEDEN T ([facility]) Body height 65.2 [in_i] 65.2 [in_i] [facility] 5'5.20" Diastolic blood pressure 64 mm[Hg] 64 mm[Hg] [facility] ([facility]) Systolic blood pressure 110 mm[Hg] 110 mm[Hg] M EDENT ([facility]) Diastolic blood pressure 72 mm[Hg] 72 mm[Hg] eCW1 ([facility]) Systolic blood pressure 124 mm[Hg] 124 mm[Hg] e CW1 ([facility]) Body mass index (BMI) [Ratio] 24.18 kg/m2 24.18 kg/m2 [facility] ([facility]) Body height 66 [in_us] 66 [in_us] W1 ([facility]) Body weight Measured 149.8 [lb_av] 149.8 [lb_av ] [facility] ([facility]) Diastolic blood pressure 74 mm[Hg] 74 mm[Hg] eCW1 ([facility]) Systolic blood pressure 116 mm[Hg] 116 mm[Hg] e CW1 ([facility]) Body mass index (BMI) [Ratio] 23.82 kg/m2 23.82 kg/m2 [facility] ([facility]) Body height 66 [in_us] 66 [in_us] W1 ([facility]) Body weight Measured 147.6 [lb_av] 147.6 [lb_av ] W1 ([facility]) Diastolic blood pressure 72 mm[Hg] 72 mm[Hg] eCW1 ([facility]) Systolic blood pressure 120 mm[Hg] 120 mm[Hg] e CW1 ([facility]) Body mass index (BMI) [Ratio] 23.79 kg/m2 23.79 kg/m2 W1 ([facility]) Body height 66 [in_us] 66 [in_us] eCW1 ([facility]) Body weight Measured 147.4 [lb_av] 147.4 [lb_av ] W1 ([facility]) Body mass index (BMI) [Ratio] 24.3 kg/m2 24.3 k g/m2 MEDENT ([facility]) Body weight 147.12 [lb_av] 147.12 [lb_av] MEDEN T ([facility]) Body height 65.2 [in_i] 65.2 [in_i] MEDENT ([facility]) 5'5.20" Diastolic blood pressure 80 mm[Hg] 80 mm[Hg] MEDENT ([facility]) Systolic blood pressure 122 mm[Hg] 122 mm[Hg] M EDENT ([facility]) Oxygen saturation in Arterial blood by Pulse oximetry 98 % 98 % MEDENT ([facility]) Body temperature 99.3 [degF] 99.3 [degF] MEDENT ([facility]) Respiratory rate 18 /min 18 /min MEDENT ( [facility] Heart rate 78 /min 78 /min MEDENT ([facility]) Oxygen saturation in Arterial blood by Pulse oximetry 98 % 98 % [facility] Body temperature 98.9 [degF] 98.9 [degF] MEDENT ([facility]) Respiratory rate 18 /min 18 /min MEDENT ( [facility] Heart rate 99 /min 99 /min MEDENT ([facility]) Body mass index (BMI) [Ratio] 24.5 kg/m2 24.5 k g/m2 MEDENT ([facility]) Body weight 148.38 [lb_av] 148.38 [lb_av] MEDEN T ([facility]) Body height 65.2 [in_i] 65.2 [in_i] MEDENT ([facility]) 5'5.20" Diastolic blood pressure 68 mm[Hg] 68 mm[Hg] MEDENT ([facility]) Systolic blood pressure 108 mm[Hg] 108 mm[Hg] [facility] Oxygen saturation in Arterial blood by Pulse oximetry 98 % 98 % MEDENT ([facility]) Body temperature 98.4 [degF] 98.4 [degF] MEDENT ([facility]) Respiratory rate 16 /min 16 /min MEDENT ( [facility] Heart rate 87 /min 87 /min MEDENT ([facility]) Body mass index (BMI) [Ratio] 25.2 kg/m2 25.2 k g/m2 MEDENT ([facility]) Body weight 152.38 [lb_av] 152.38 [lb_av] MEDEN T ([facility]) Body height 65.2 [in_i] 65.2 [in_i] MEDENT ([facility]) 5'5.20" Diastolic blood pressure 84 mm[Hg] 84 mm[Hg] MEDENT ([facility]) Systolic blood pressure 124 mm[Hg] 124 mm[Hg] [facility] Body mass index (BMI) [Ratio] 24.5 kg/m2 24.5 k g/m2 MEDENT ([facility]) Body height 66 [in_i] 66 [in_i] MEDENT ([facility]) 5'6" Body weight 152.00 [lb_av] 152.00 [lb_av] MEDEN T ([facility], [facility]) Body temperature 98.7 [degF] 98.7 [degF] MEDENT ([facility], [facility]) Oxygen saturation in Arterial blood by Pulse oximetry 99 % 99 % MEDENT ([facility], [facility]) Respiratory rate 16 /min 16 /min MEDENT ( [facility], [facility]) Heart rate 78 /min 78 /min MEDENT ([facility], [facility]) Diastolic blood pressure 52 mm[Hg] 52 mm[Hg] MEDENT ([facility], [facility]) Systolic blood pressure 100 mm[Hg] 100 mm[Hg] M EDENT ([facility], [facility]) Diastolic blood pressure 86 mm[Hg] 86 mm[Hg] eCW1 ([facility]) Systolic blood pressure 136 mm[Hg] 136 mm[Hg] e CW1 ([facility]) Body mass index (BMI) [Ratio] 28.924 kg/m2 28.9 24 kg/m2 eCW1 ([facility]) Body height 66 [in_us] 66 [in_us] W1 ([facility]) Body weight Measured 179.2 [lb_av] 179.2 [lb_av ] [facility] ([facility]) Diastolic blood pressure 74 mm[Hg] 74 mm[Hg] eCW1 ([facility]) Systolic blood pressure 134 mm[Hg] 134 mm[Hg] e CW1 ([facility]) Body mass index (BMI) [Ratio] 29.117 kg/m2 29.1 17 kg/m2 W1 ([facility]) Body height 66 [in_us] 66 [in_us] eCW1 ([facility]) Body weight Measured 180.4 [lb_av] 180.4 [lb_av ] [facility] ([facility])
[2020-04-04 18:53] LABS: RSV AMPLIFICATION NEGATIVE (NEGATIVE)
[2020-04-04] MEDS ORDERED: clonazePAM 0.5 MG TAB PO ONE (19:45)
[2020-04-05 01:19] VITALS: BP 93/64
[2020-04-05] MEDS ORDERED: SERTRALINE HCL 50 MG TAB PO SCH (09:00)
--- NOTE | 2020-04-05 17:36 | MHHPEPDOC ---
General Date Of Admission: Apr 05, 2020 Legal Status: 9.39 Chief Complaint Thoughts of hurting baby daughter ". History of Present Illness HISTORY OF THE PRESENT ILLNESS: Patient is a 25 -year-old , female, who lives in [place] [place] with her parents. She is to a 32-year-old gentleman and they were living with her parents. They had sold their own house last year and had moved in with their parents with thoughts of building a new house. He is a contractor. They began to argue while they lived with her parents over political issues. The patient and are both Pentecostal. She has a degree in social science and has traveled the world extensively.The moved out of the house and bought another house approximately a year ago. The patient experienced in her opinion, depression and anxiety with the fear of losing her daughter. She has obsessions about numerous issues where her daughter would be harmed either by her or anyone else. She is quite dependent on her emotionally and he has not been there as they had . She worries about her daughter when the daughter is with him. She states what "if I hurt her or stabbed her." Patient states she has constant fear, and constant thoughts of harm. She was initially treated by her door to door fundraising collector with Zoloft 50 which has been her continued medication with some Klonopin as needed Psychiatric Review of Systems Depression (2 or more weeks): difficulty concentrating Margie (4 or more days of): denies Psychosis: denies PTSD: denies Anxiety: gen/non-specific anxiety Anxiety/ 6 months or more of: other Past Psychiatric History Previous Psychiatric Diagnosis: Treated for post depression by her door to door fundraising collector Previous Psychiatric Admissions: No previous admissions. Suicide Attempts:. No suicide attempts. Psychiatric Follow-up: no psychiatric follow-up. Psychiatric medications: Zoloft 50 mg and Klonopin as needed. Past Medical History Medical Problems No significant medical problems Head Injury: No Seizures: No Hospitalizations: No Surgeries: No Family Medical/Psychiatric HX Medical Problems No significant medical problems Psychiatric Disorders: Yes Addiction: No Suicide Attemps/Completions: No Addiction History denies Social History Childhood: No reported difficulties Abuse/Trauma:. No reported abuse. Current Living Situation:. Currently lives with parents. Education: College educated. 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 No difficulties. Social Support:. Parents. Legal: Legal difficulties. Marital: Presently but . Mental Status Examination General Appearance: well groomed Build: average Demeanor: average Eye Contact: average Activity: average Behavior: cooperative Speech: clear Mood: euthymic Mood Anxious and depressed Thought Process: logical/linear Thought Content (Delusions): none reported Thought Content (Other): guilty Thought Content (Aggressive): none reported Perception (Hallucinations): none reported Perception (Other): none reported Cognition (Impairment of): none reported Cognition(Intelligence Est.): above average Oriented: Oriented times three Insight: fair Judgment: Fair Psychosis: Denies Diagnoses depression with obsessive compulsive symptoms and anxiety A-FIB/CHADSVASC A-FIB History Current/History of A-Fib/PAF?: No Current PO Anticoag Therapy: No Age/Risk Factor Scoring CHADSVASC: CHADSVASC Response (Comments) Value Age Risk Factor Age < 65 years old 0 Total 0 Treatment Treatment ordered: NONE Initial Treatment Plan 1. Patient was admitted on a [9.39] status. 2. Complete history was obtained. 3. With patients permission, family will be contacted and database will be expanded. 4. Patients medication regimen will be reviewed and changed accordingly. 5. Patient will be provided with protected environment. 6. Patient will be treated with individual, group, and milieu therapies. 7. Patient will receive supportive psych-education. 8. Discharge planning will commence immediately. 9. Outpatient follow-up treatment will be strongly recommended. 10. The initial treatment plan will focus initially on: * Depression. * Risk for suicide. ESTIMATED LENGTH OF STAY: - DAYS. TIME SPENT COUNSELING AND COORDINATING INITIAL CARE: minutes. Vital Signs Vital Signs Date Time Temp Pulse Resp B/P (MAP) Pulse Ox O2 Delivery O2 Flow Rate FiO2 04/05/20 11:01 Room Air 04/05/20 01:19 98.3 82 16 93/64 (52) 98 Laboratory Data 24H Labs Laboratory Tests 2 04/04/20 18:06: Coronavirus (COVID-19)(PCR) NEGATIVE, Influenza Type A (RT-PCR) NEGATIVE, Influenza Type B (RT-PCR) NEGATIVE, Respiratory Syncytial Virus (PCR) NEGATIVE Medications Scheduled Sertraline HCl (Sertraline HCl) 50 Mg Tablet, 50 MG PO DAILY, (Reported) Scheduled PRN Clonazepam (Clonazepam) 0.5 Mg Tablet, 0.5 MG PO DAILY PRN for ANXIETY, (Reported) Allergies Coded Allergies: Sulfa (Sulfonamide Antibiotics) (Verified Allergy, Unknown, 02/05/19) RASH? HAPPED DURING INFANCY MATT ELIAS MD Apr 05, 2020 17:36
--- NOTE | 2020-04-05 18:06 | HPEPDOC ---
[facility] Medical History & Physical Date of Admission Apr 05, 2020 Date of Service: Apr 05, 2020 History and Physical CHIEF COMPLAINT: anxiety HISTORY OF PRESENT ILLNESS: 25-year-old female with a history of depression and anxiety, was [facility] experiencing significant anxiety and concerns over her relationship and inferior things happening to her daughter. Her are presently . Hospitalist was consulted for medical comanagement. Patient at this time. Denies any chest pain, seizures of breath, fever, chills, nausea, vomiting, diarrhea. She states that she feels better, has no thoughts of harming herself. Not experiencing auditory or visual hallucinations. Lab work was reviewed. It did not reveal any abnormalities. Vital signs are stable and within normal limits. PAST MEDICAL HISTORY: Anxiety post depression PAST SURGICAL HISTORY: wisdom teeth extraction SOCIAL HISTORY: Patient denies smoking Patient denies etoh use Patient denies illicit drug use FAMILY HISTORY: Reports diabetes on both sides of her family ALLERGIES: Please see below. REVIEW OF SYSTEMS: 10 point review of systems was completed and relevant findings were noted in HPI. HOME MEDICATIONS: Please see below. PHYSICAL EXAMINATION: VITAL SIGNS: please see below General: NAD, comfortable HEENT: PERRLA, EOMI, sclerae clear Neck: supple, normal ROM, no JVD Respiratory: lungs CTAB, no wheeze, no rales, no crackles CVS: RRR, normal S1, S2, no murmurs Abdo: soft, no masses, no hepatosplenomegaly, BS+, no rebound tenderness Extremities: no edema, pulses 2+ MSK: no joint deformities, normal ROM Neuro: no focal neuro deficits, moving all 4 extremities, CN2-12 intact. Strength 5/5 in all 4 extremities. No nystagmus. Psych: calm, cooperative, AAO x 3 LABORATORY DATA: See below. MICROBIOLOGY: Please see below. ASSESSMENT: 25-year-old female with a history anxiety and depression, admitted to [facility] for severe anxiety and depression along with obsessive compulsive symptoms. Hospitalist was consulted for medical comanagement. . PLAN: depression with obsessive compulsive symptoms and anxiety - management per psychiatry Thank for involving me in the care of this patient. Please reconsult as necessary Vital Signs Vital Signs Date Time Temp Pulse Resp B/P (MAP) Pulse Ox O2 Delivery O2 Flow Rate FiO2 04/05/20 11:01 Room Air 2/18/21 01:19 98.3 82 16 93/64 (74) 98 Home Medications Scheduled Sertraline HCl (Sertraline HCl) 50 Mg Tablet, 50 MG PO DAILY Scheduled PRN Clonazepam (Clonazepam) 0.5 Mg Tablet, 0.5 MG PO DAILY PRN for ANXIETY Allergies Coded Allergies: Sulfa (Sulfonamide Antibiotics) (Verified Allergy, Unknown, 02/05/19) RASH? HAPPED DURING INFANCY FRANSISCO PHELAN MD Apr 05, 2020 18:06
[2020-04-05 19:10] VITALS: BP 127/65
[2020-04-05] MEDS ORDERED: SODIUM CHLORIDE NASAL 0.65% SPRAY BTL (OCEAN) PRN (21:00)
[2020-04-06 06:31] VITALS: BP 101/72
[2020-04-06] MEDS: SERTRALINE 100 MG TAB PO SCH (09:05)
--- NOTE | 2020-04-06 13:23 | MHIPNPDOC ---
[facility] Progress Note Progress Note DATE OF SERVICE: 04/06/20 HISTORY: 25-year-old female with one-year history of intrusive obsessions of a violent nature towards her baby daughter. VITAL SIGNS: See below. NEW TEST RESULTS: None. CURRENT MEDICATIONS: See below. MENTAL STATUS EXAMINATION: Patient is a when he for-year old female, who is 25-year-old female who lives with her parents and developed recurrent intrusive thoughts of violence towards her baby daughter. Speech: Is, unremarkable. Language skills are. Normal. Thought processes including: Obsessive thoughts of violence or threat to her baby daughter. Thought content:. As above. Abstract reasoning, and computation:, able to abstract. Description of associations: No loose associations. Description of abnormal or psychotic thoughts:. Abnormal repetitive, violent intrusive thoughts towards her child. Judgment:. fair Insight: Fair. Orientation: 3. Recent and remote memory: Intact. Attention span and concentration:. No apparent difficulty. Language: Intact. Fund of knowledge:. Full. Mood: Labile. Affect:, Congruent. DIAGNOSES: 1. Obsessive-compulsive disorder. 2., depression. 3., Marital stress. ASSESSMENT:, Any 5 year old high functioning female with one-year history of obsessions that are worsening concerning violence towards her daughter MANAGEMENT PLAN:. Increase Zoloft and observe. TIME SPENT: 35 minutes. Vital Signs Vital Signs Date Time Temp Pulse Resp B/P (MAP) Pulse Ox O2 Delivery O2 Flow Rate FiO2 04/06/20 06:31 99.2 100 16 101/72 (82) 97 Room Air Current Medications Current Medications Medications (Trade) Dose Ordered Sig/John Route PRN Reason Start Time Stop Time Status Last Admin Dose Admin Acetaminophen (Tylenol Tab) 650 mg Q6HP PRN PO HEADACHE or DISCOMFORT 04/04/20 17:45 04/04/20 19:54 Al Hydrox/Mg Hydrox/Simethicone (Mylanta) 30 ml Q4HP PRN PO HEARTBURN/INDIGESTION 04/04/20 17:45 Home Med (Med Rec Complete!) ASDIRECTED XX 04/04/20 18:45 04/04/20 18:41 DC Magnesium Hydroxide (Milk Of Magnesia) 30 ml DAILYPRN PRN PO CONSTIPATION 04/04/20 17:45 Olanzapine (ZyPREXA ZYDIS) 5 mg Q6HP PRN PO ANXIETY/AGITATION 2/17/21 17:45 Sertraline HCl (Zoloft) 50 mg DAILY PO 04/05/20 09:00 04/05/20 17:10 DC 04/05/20 09:13 Sertraline HCl (Zoloft) 100 mg DAILY PO 04/06/20 09:00 04/06/20 09:05 Sodium Chloride ([place] Nasal [place]) 2 spray Q6HP PRN NA NASAL DRYNESS 04/05/20 21:00 04/06/20 09:06 Trazodone HCl (Desyrel) 50 mg QHSP PRN PO INSOMNIA 04/04/20 17:45 Allergies Coded Allergies: Sulfa (Sulfonamide Antibiotics) (Verified Allergy, Unknown, 02/05/19) RASH? HAPPED DURING INFANCY MATT ELIAS MD Apr 06, 2020 13:23
[2020-04-06 16:00] VITALS: BP 129/73
[2020-04-07 06:50] VITALS: BP 110/58
[2020-04-07] MEDS: SERTRALINE 100 MG TAB PO SCH (08:31)
[2020-04-07] MEDS ORDERED: [UNRECOGNIZED DRUG - OTHER] PO SCH (09:00)
[2020-04-07 16:10] VITALS: BP 137/73
--- NOTE | 2020-04-07 16:59 | MHIPNPDOC ---
[facility] Progress Note Progress Note DATE OF SERVICE: 04/07/20 HISTORY: 25-year-old female with history of depression, arteritis by violent obsessions about her 1-year-old child. VITAL SIGNS: See below. NEW TEST RESULTS: None. CURRENT MEDICATIONS: See below. MENTAL STATUS EXAMINATION: Patient is a, 25-year old female, who is stating that her mood is improving and she is less anxious. Speech: Is. Normal. Language skills are normal. Thought processes including:. Improved mood and desire to be in outpatient thera py. Thought content: Optimism. Abstract reasoning, and computation: To abstract. Description of associations: Loose associations. Description of abnormal or psychotic thoughts:, No psychotic for. Judgment: Good. Insight: Good. Orientation: 3. Recent and remote memory: Intact. Attention span and concentration:. Good. Language: No abnormalities. Fund of knowledge:. Full. Mood: Improved. Affect: Congruent. DIAGNOSES: 1.. depression with obsessions. 2. None. 3.. Marital stressors. ASSESSMENT: As above MANAGEMENT PLAN:. Continue present medications. TIME SPENT: minutes. Vital Signs Vital Signs Date Time Temp Pulse Resp B/P (MAP) Pulse Ox O2 Delivery O2 Flow Rate FiO2 04/07/20 16:10 98.7 88 16 137/73 (94) 97 Room Air Current Medications Current Medications Medications (Trade) Dose Ordered Sig/John Route PRN Reason Start Time Stop Time Status Last Admin Dose Admin Acetaminophen (Tylenol Tab) 650 mg Q6HP PRN PO HEADACHE or DISCOMFORT 04/04/20 17:45 04/04/20 19:54 Al Hydrox/Mg Hydrox/Simethicone (Mylanta) 30 ml Q4HP PRN PO HEARTBURN/INDIGESTION 04/04/20 17:45 Home Med (Med Rec Complete!) ASDIRECTED XX 04/04/20 18:45 04/04/20 18:41 DC Magnesium Hydroxide (Milk Of Magnesia) 30 ml DAILYPRN PRN PO CONSTIPATION 04/04/20 17:45 Olanzapine (ZyPREXA ZYDIS) 5 mg Q6HP PRN PO ANXIETY/AGITATION 04/04/20 17:45 Patient Own Medication (Patient'S Own Med) [place] 0.15 mg/ 0.3 mg ... DAILY PO 04/07/20 09:00 UNV Sertraline HCl (Zoloft) 50 mg DAILY PO 04/05/20 09:00 04/05/20 17:10 DC 04/05/20 09:13 Sertraline HCl (Zoloft) 100 mg DAILY PO 04/06/20 09:00 04/07/20 08:31 Sodium Chloride ([place] Nasal [place]) 2 spray Q6HP PRN NA NASAL DRYNESS 04/05/20 21:00 04/06/20 09:06 Trazodone HCl (Desyrel) 50 mg QHSP PRN PO INSOMNIA 04/04/20 17:45 Allergies Coded Allergies: Sulfa (Sulfonamide Antibiotics) (Verified Allergy, Unknown, 02/05/19) RASH? HAPPED DURING INFANCY MATT ELIAS MD Apr 07, 2020 16:59
[2020-04-08 06:24] VITALS: BP 110/61
[2020-04-08] MEDS: SERTRALINE 100 MG TAB PO SCH (08:51)
--- NOTE | 2020-04-08 14:27 | MHIPNPDOC ---
[facility] Progress Note Progress Note DATE OF SERVICE: 04/08/20 HISTORY: 25-year-old with history of 1 year post depression with obsessions. VITAL SIGNS: See below. NEW TEST RESULTS: None. CURRENT MEDICATIONS: See below. MENTAL STATUS EXAMINATION: Patient is a 25-year old female, who is feeling improved. Speech: Is. Normal. Language skills are intact. Thought processes including: Planning to move back with . Thought content:. As above. Abstract reasoning, and computation:. ableto Abs tract. Description of associations: No loose association. Description of abnormal or psychotic thoughts:. No psychotic thoughts. Judgment:. Good. Insight: Good. Orientation: 3. Recent and remote memory: Intact. Attention span and concentration: Intact. Language:. No disturbance. Fund of knowledge:full Mood: Good. Affect: Congruent. DIAGNOSES: 1. depression with obsessions. 2. None. 3.. Marital stressors. ASSESSMENT: As above MANAGEMENT PLAN:, We'll begin planning discharge. TIME SPENT: 30 minutes. Vital Signs Vital Signs Date Time Temp Pulse Resp B/P (MAP) Pulse Ox O2 Delivery O2 Flow Rate FiO2 04/08/20 06:24 98.3 68 16 110/61 (77) 99 Room Air Current Medications Current Medications Medications (Trade) Dose Ordered Sig/John Route PRN Reason Start Time Stop Time Status Last Admin Dose Admin Acetaminophen (Tylenol Tab) 650 mg Q6HP PRN PO HEADACHE or DISCOMFORT 04/04/20 17:45 04/04/20 19:54 Al Hydrox/Mg Hydrox/Simethicone (Mylanta) 30 ml Q4HP PRN PO HEARTBURN/INDIGESTION 04/04/20 17:45 Home Med (Med Rec Complete!) ASDIRECTED XX 04/04/20 18:45 04/04/20 18:41 DC Magnesium Hydroxide (Milk Of Magnesia) 30 ml DAILYPRN PRN PO CONSTIPATION 04/04/20 17:45 Olanzapine (ZyPREXA ZYDIS) 5 mg Q6HP PRN PO ANXIETY/AGITATION 04/04/20 17:45 Patient Own Medication (Patient'S Own Med) [place] 0.15 mg/ 0.3 mg ... DAILY PO 04/07/20 09:00 UNV Sertraline HCl (Zoloft) 50 mg DAILY PO 04/05/20 09:00 04/05/20 17:10 DC 04/05/20 09:13 Sertraline HCl (Zoloft) 100 mg DAILY PO 04/06/20 09:00 04/08/20 08:51 Sodium Chloride ([place] Nasal [place]) 2 spray Q6HP PRN NA NASAL DRYNESS 04/05/20 21:00 04/06/20 09:06 Trazodone HCl (Desyrel) 50 mg QHSP PRN PO INSOMNIA 04/04/20 17:45 Allergies Coded Allergies: Sulfa (Sulfonamide Antibiotics) (Verified Allergy, Unknown, 02/05/19) RASH? HAPPED DURING INFANCY MATT ELIAS MD Apr 08, 2020 14:27
[2020-04-08 16:10] VITALS: BP 108/58
[2020-04-09 06:57] VITALS: BP 140/69
--- NOTE | 2020-04-09 08:05 | MHDSPDOC ---
[facility] Discharge Summary Discharge Summary DATE OF ADMISSION: Apr 04, 2020 at 17:35 DATE OF DISCHARGE: DISCHARGE DIAGNOSES: 1. Major depression. 2., Obsessive compulsive symptoms. REASON FOR ADMISSION:, Marital stressors and obsessive violent thoughts concerning her baby CONSULTANTS INVOLVED: None TREATMENT AND PROGRESS ON THE UNIT :. Patient was given an increased dose of Zoloft. She had been on Zoloft 50 mg, but still was having depressive and symptoms of obsessions concerning violent thoughts about her baby. HOSPITAL COURSE:. Patient was completely cooperative and felt the increase of m edication helped her. She made the decision that she and her would move back together DISCHARGE ASSESSMENT:. Major depression with obsessive symptoms MENTAL STATUS EXAMINATION ON DISCHARGE: Patient is a, 25-year old female, who is, cheerful and communicative. Speech is normal. Language skills are intact. Thought processes including: Desire to go home, get back to work and move back with her . Thought content: As above. Abstract reasoning, and computation: . Description of associations: Able to abstract. Description of abnormal or psychotic thoughts:. No abnormal or psychotic thoughts at this time. Judgment:. Good. Insight: Good. Orientation to 3. Recent and remote memory: Intact. Attention span and concentration:. Good. Language: No difficulties. Fund of knowledge: Full. Mood: Good. Affect: Bright. MEDICATIONS ON DISCHARGE: -, Zoloft 100 mg for depression and obsessions. PLAN/FOLLOWUP ARRANGEMENTS: As per nurse discharge planner. The amount of time spent in the coordination of care for this patient was approximately 35 minutes. Vital Signs/I&Os Vital Signs Date Time Temp Pulse Resp B/P (MAP) Pulse Ox O2 Delivery O2 Flow Rate FiO2 04/09/20 06:57 99.6 74 16 140/69 (92) 98 Room Air Medications Scheduled Sertraline HCl (Sertraline HCl) 50 Mg Tablet, 50 MG PO DAILY, (Reported) Scheduled PRN Clonazepam (Clonazepam) 0.5 Mg Tablet, 0.5 MG PO DAILY PRN for ANXIETY, (Reported) Allergies Coded Allergies: Sulfa (Sulfonamide Antibiotics) (Verified Allergy, Unknown, 02/05/19) RASH? HAPPED DURING INFANCY MATT ELIAS MD Apr 09, 2020 08:05
[2020-04-09] MEDS: SERTRALINE 100 MG TAB PO SCH (08:40)
[2020-04-09] MEDS ORDERED: ZOLO100T PO (09:24)
== END 2020-04-09 11:04 | disposition home or self-care (01) | DRG 757 ==
LOC: M ED 12:58 → M ED INP 17:35 → M PSY 04-05 01:18
PROVIDERS: ADMIT Psychiatry & Neurology Psychiatry; ATTEND Psychiatry & Neurology Child & Adolescent Psychiatry
DX: F53.0 Postpartum depression (principal); Z88.2 Allergy status to sulfonamides; F42.9 Obsessive-compulsive disorder, unspecified; Z79.899 Other long term (current) drug therapy; Z63.0 Problems in relationship with spouse or partner

== ENCOUNTER → 2020-04-25 | Outpatient (CLI) | payer OTHER ==
[~2020-04-25] MED LIST changes: +CLON0.5T2 PO; +SERT50TA29 PO; +ZOLO100T PO
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
== END ==
LOC: M RAD 07:26
PROVIDERS: ATTEND Physician Assistant
DX: G44.209 Tension-type headache, unspecified, not intractable (principal)

== ENCOUNTER → 2020-07-19 | Outpatient (REF) | payer OTHER, MEDICAID | LOC: M SFHCWAGY 10:03 | PROVIDERS: ATTEND Advanced Practice Midwife | DX: Z12.4 Encounter for screening for malignant neoplasm of cervix (principal); R87.610 Atypical squamous cells of undetermined significance on cytologic smear of cervix (ASC-US); Z77.9 Other contact with and (suspected) exposures hazardous to health | CPT/HCPCS: 87624; G0123 ==

== ENCOUNTER 2020-08-03 16:28 | Emergency (ER) | payer OTHER, MEDICAID ==
[~2020-08-03] VITALS: Ht 167.6 cm; Wt 65.9 kg
[2020-08-03] MEDS ORDERED: CLAR10CA3 PO (16:42)
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
[2020-08-03 19:03] VITALS: BP 122/78
== END 2020-08-03 19:05 | disposition home or self-care (01) ==
LOC: M ED 16:28 → EDBD 16:28 → M ED 19:05
DX: S09.90XA Unspecified injury of head, initial encounter (principal); S60.222A Contusion of left hand, initial encounter; V49.40XA Driver injured in collision with unspecified motor vehicles in traffic accident, initial encounter; Y92.9 Unspecified place or not applicable; Y93.9 Activity, unspecified; Y99.9 Unspecified external cause status; Z88.1 Allergy status to other antibiotic agents; Z88.2 Allergy status to sulfonamides

== ENCOUNTER → 2020-11-01 | Outpatient (CLI) | payer OTHER ==
[~2020-11-01] MED LIST changes: +CLAR10CA3 PO
[2020-11-01 19:51] LABS: BASO % 0.3 % (0.0-1.0); EOS # 0.1 10^3/uL (0.0-0.5); EOS % 1.7 % (0.0-3.0); HEMATOCRIT 37.1 % (36.0-47.0); HEMOGLOBIN 12.7 g/dl (12.0-15.5); LYMPH # 2.2 10^3/uL (1.5-5.0); LYMPH % 27.8 % (24.0-44.0); MEAN CORPUSCULAR HEMOGLOBIN 31.1 pg (27.0-33.0); MEAN CORPUSCULAR HGB CONC 34.2 g/dl (32.0-36.5); MEAN CORPUSCULAR VOLUME 90.9 fl (80.0-96.0); MONO # 0.4 10^3/uL (0.0-0.8); MONO % 5.1 % (2.0-8.0); NEUTROPHILS % 64.7 % (36.0-66.0); PLATELET COUNT, AUTOMATED 228 10^3/uL (150-450); RED BLOOD COUNT 4.08 10^6/uL (4.00-5.40); WHITE BLOOD COUNT 7.8 10^3/uL (4.0-10.0)
[2020-11-01 19:52] LABS: HEPATITIS C VIRUS ABY INDEX 0.1 INDEX (<0.8); HIV 1&2 SCREEN CENTAUR NEGATIVE (NEGATIVE)
[2020-11-01 19:58] LABS: GC DNA AMPLIFICATION NEGATIVE (NEGATIVE)
== END ==
LOC: M PLALAB 15:01
PROVIDERS: ATTEND Advanced Practice Midwife
DX: O99.341 Other mental disorders complicating pregnancy, first trimester (principal); Z3A.00 Weeks of gestation of pregnancy not specified

== ENCOUNTER → 2020-12-04 | Outpatient (CLI) | payer OTHER, MEDICAID ==
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
== END ==
LOC: M RAD 11:36
PROVIDERS: ATTEND Advanced Practice Midwife
DX: O99.342 Other mental disorders complicating pregnancy, second trimester (principal); Z3A.18 18 weeks gestation of pregnancy

== ENCOUNTER → 2020-12-07 | Outpatient (REF) | payer OTHER, MEDICAID | LOC: M LAB REF 16:39 | PROVIDERS: ATTEND Physician Assistant | DX: J01.90 Acute sinusitis, unspecified (principal) ==

== ENCOUNTER → 2020-12-20 | Outpatient (REF) | payer OTHER, MEDICAID | LOC: M SFHCWAGY 16:54 | PROVIDERS: ATTEND Advanced Practice Midwife | DX: O99.342 Other mental disorders complicating pregnancy, second trimester (principal) ==

== ENCOUNTER → 2021-01-03 | Outpatient (REF) | payer OTHER, MEDICAID | LOC: M SFHCWAGY 13:03 | PROVIDERS: ATTEND Advanced Practice Midwife | DX: O99.891 Other specified diseases and conditions complicating pregnancy (principal); Z3A.00 Weeks of gestation of pregnancy not specified ==

== ENCOUNTER → 2021-01-18 | Outpatient (REF) | payer OTHER, MEDICAID | LOC: M SFHCWAGY 16:47 | PROVIDERS: ATTEND Advanced Practice Midwife | DX: O99.342 Other mental disorders complicating pregnancy, second trimester (principal); Z3A.00 Weeks of gestation of pregnancy not specified ==

== ENCOUNTER → 2021-01-31 | Outpatient (REF) | payer OTHER, MEDICAID | LOC: M SFHCWAGY 16:56 | PROVIDERS: ATTEND Obstetrics & Gynecology | DX: R30.0 Dysuria (principal) ==

== ENCOUNTER → 2021-02-07 | Outpatient (CLI) | payer OTHER, MEDICAID ==
[2021-02-07 18:09] LABS: HEMATOCRIT 35.7 % (36.0-47.0); HEMOGLOBIN 11.8 g/dl (12.0-15.5); MEAN CORPUSCULAR HEMOGLOBIN 31.4 pg (27.0-33.0); MEAN CORPUSCULAR HGB CONC 33.1 g/dl (32.0-36.5); MEAN CORPUSCULAR VOLUME 94.9 fl (80.0-96.0); PLATELET COUNT, AUTOMATED 203 10^3/uL (150-450); RED BLOOD COUNT 3.76 10^6/uL (4.00-5.40); WHITE BLOOD COUNT 9.5 10^3/uL (4.0-10.0)
== END ==
LOC: M PLALAB 13:40
PROVIDERS: ATTEND Advanced Practice Midwife
DX: O99.342 Other mental disorders complicating pregnancy, second trimester (principal)

== ENCOUNTER → 2021-03-11 | Outpatient (REF) | payer OTHER, MEDICAID | LOC: M LAB REF 16:56 | PROVIDERS: ATTEND Physician Assistant | DX: Z20.822 Contact with and (suspected) exposure to COVID-19 (principal); J01.90 Acute sinusitis, unspecified | CPT/HCPCS: 87633; U0003 ==

== ENCOUNTER → 2021-03-18 | Outpatient (CLI) | payer OTHER, MEDICAID | LOC: M RAD 14:18 | PROVIDERS: ATTEND Advanced Practice Midwife | DX: O26.843 Uterine size-date discrepancy, third trimester (principal); Z3A.32 32 weeks gestation of pregnancy; O36.63X0 Maternal care for excessive fetal growth, third trimester, not applicable or unspecified ==

== ENCOUNTER → 2021-04-18 | Outpatient (REF) | payer OTHER, MEDICAID ==
[~2021-04-18] MED LIST changes: +ACET-907 PO; +NOXI1TAB PO
== END ==
LOC: M SFHCWAGY 10:02
PROVIDERS: ATTEND Advanced Practice Midwife
DX: O99.343 Other mental disorders complicating pregnancy, third trimester (principal); Z3A.00 Weeks of gestation of pregnancy not specified

== ENCOUNTER 2021-04-20 13:14 | Outpatient (CLI) | payer OTHER, MEDICAID ==
[~2021-04-20] VITALS: Ht 167.6 cm; Wt 89.9 kg
[~2021-04-20 13:14] MED LIST changes: -ACET-907 PO; -NOXI1TAB PO
[2021-04-20 13:38] VITALS: BP 117/60
[2021-04-20] MEDS ORDERED: NOXI1TAB PO (13:41)
[2021-04-20] MEDS ORDERED: PRENTAB9 PO (13:41)
[2021-04-20] MEDS ORDERED: ACET-907 PO (13:41)
[2021-04-20] MEDS ORDERED: HOME MED LIST COMPLETE! XX SCH (13:45)
== END 2021-04-20 15:18 | disposition home or self-care (01) ==
LOC: M LDO 13:14
PROVIDERS: ATTEND Obstetrics & Gynecology
DX: O26.893 Other specified pregnancy related conditions, third trimester (principal); R10.30 Lower abdominal pain, unspecified; W00.9XXA Unspecified fall due to ice and snow, initial encounter; Y92.9 Unspecified place or not applicable; Y93.9 Activity, unspecified; Z86.16 Personal history of COVID-19; Z3A.37 37 weeks gestation of pregnancy
CPT/HCPCS: 59025; 76815; G0378; G0463

== ENCOUNTER → 2021-04-29 | Outpatient (CLI) | payer OTHER, MEDICAID ==
[~2021-04-29] MED LIST changes: +ACET-907 PO; +NOXI1TAB PO
== END ==
LOC: M RAD 09:24
PROVIDERS: ATTEND Advanced Practice Midwife
DX: O26.843 Uterine size-date discrepancy, third trimester (principal); Z3A.30 30 weeks gestation of pregnancy